=== PATIENT | male | born 1945 | race Two or more races ===

== ENCOUNTER 2016-12-22 10:27 | Inpatient (IN) | payer OTHER ==
[2016-12-22] VITALS (30 sets, daily range): BP systolic 79–161; BP diastolic 49–95
[~2016-12-22] VITALS: Ht 185.4 cm; Wt 84.9 kg
[2016-12-22] MEDS ORDERED: SODIUM CHLORIDE 0.9% 1,000 ML IV ONE (10:33)
[2016-12-22] MEDS ORDERED: PIPERACILLIN/TAZOBACTAM 3.375GM/50ML PREMIX IV ONE (10:45)
[2016-12-22 11:07] LABS: BASOPHILS % 0.2 % (0.0-2.0); EOSINOPHILS % 0.1 % (0.0-5.0); HEMATOCRIT. 50.8 % (42.0-52.0); HEMOGLOBIN. 16.4 g/dL (14.0-18.0); LYMPHOCYTES % 16.8 % (20.0-50.0); MEAN CORPUSCULAR HEMOGLOBIN 29.5 pg (28.0-32.0); MEAN CORPUSCULAR VOLUME 91.7 fL (80.0-94.0); MEAN PLATELET VOLUME 11.7 fl (7.4-10.4); MONOCYTES % 8.5 % (2.0-8.0); NEUTROPHILS % 74.4 % (40.0-76.0); PLATELET 120 x1000/uL (130-400); RED BLOOD CELL COUNT 5.55 mill/uL (4.7-6.1); RED CELL DISTRIBUTION WIDTH 14.9 % (11.6-14.6)
[2016-12-22 11:07] LABS: GLUCOSE URINE NEGATIVE (NEGATIVE); KETONES URINE NEGATIVE (NEGATIVE); LEUKOCYTE ESTERASE URINE 3+ (NEGATIVE); NITRITE URINE POSITIVE (NEGATIVE); OCCULT BLOOD URINE 3+ (NEGATIVE); PH URINE 8.5 (4.5-8.0); PROTEIN URINE 3+ (NEGATIVE); SPECIFIC GRAVITY URINE 1.024 (1.005-1.030)
[2016-12-22 11:08] LABS: CLARITY URINE TURBID (CLEAR); COLOR URINE DARK YELLOW (YELLOW)
[2016-12-22 11:09] LABS: BG BASE EXCESS -12.5 mmol/L (-2.0-2.0); BG CARBOXYHEMOGLOBIN 0.4 % (0.5-1.5); BG DEOXYHEMOGLOBIN 1.5 % (0.0-5.0); BG FRACTION INSPIRED OXYGEN 99.8; BG HCO3 ACT 17.4 mmol/L (22.0-26.0); BG METHEMOGLOBIN 0.6 % (0.0-1.5); BG OXYGEN SATURATION 98.5 % (92.0-98.5); BG OXYHEMOGLOBIN 97.5 % (94.0-97.0); BG PCO2 55.5 mmHg (35.0-45.0); BG PH 7.115 (7.350-7.450); BG SAMPLE SITE RIGHT RADIAL; BG TOTAL HEMOGLOBIN 16.7 g/dL (12.0-18.0); BG VENT MODE MASK - NRB
[2016-12-22 11:13] LABS: CARBON DIOXIDE 19 mEq/L (21-32); CHLORIDE 144 mEq/L (98-107)
[2016-12-22 11:14] LABS: INR 1.2; PROTHROMBIN TIME 12.4 sec (9.4-11.6)
[2016-12-22] MEDS ORDERED: VANCOMYCIN 1 G PREMIX 200 ML IV SCH (11:15)
[2016-12-22] MEDS: PIPERACILLIN/TAZ 3.375G PREMIX 50 ML IV NR ×2 (11:43→13:10)
[2016-12-22] MEDS ORDERED: PROPOFOL 10MG/ML 100ML 100 ML IV ONE (12:45)
[2016-12-22] MEDS ORDERED: SUCCINYLCHOLINE CHLORIDE 200MG/10ML VIAL IV ONE (12:45)
[2016-12-22 15:19] LABS: BG BASE EXCESS -13.8 mmol/L (-2.0-2.0); BG CARBOXYHEMOGLOBIN 0.2 % (0.5-1.5); BG DEOXYHEMOGLOBIN 0.6 % (0.0-5.0); BG FRACTION INSPIRED OXYGEN 100; BG METHEMOGLOBIN 0.6 % (0.0-1.5); BG OXYGEN SATURATION 99.4 % (92.0-98.5); BG OXYHEMOGLOBIN 98.6 % (94.0-97.0); BG PCO2 45.2 mmHg (35.0-45.0); BG PH 7.138 (7.350-7.450); BG PO2 395.5 mmHg (75.0-100.0); BG SAMPLE SITE RIGHT BRACHIAL; BG TIDAL VOLUME(mL) 550 mL; BG TOTAL HEMOGLOBIN 14.6 g/dL (12.0-18.0); BG VENT MODE VENT - A/C; BG VENT RATE 16 set
[2016-12-22] MEDS ORDERED: ALBUTEROL (0.5%) 2.5MG/0.5ML NEB HHN PRN (17:45)
[2016-12-22] MEDS ORDERED: ALBUTEROL (0.083%) 2.5MG/3ML NEB HHN SCH (18:00)
[2016-12-22] MEDS ORDERED: PROPOFOL 10MG/ML 100ML 100 ML IV PRN (18:00)
[2016-12-22] MEDS ORDERED: ALBUTEROL (0.083%) 2.5MG/3ML NEB HHN PRN (18:01)
[2016-12-22] MEDS ORDERED: IPRATROPIUM/ALBUTEROL 0.5-3(2.5)MG/3ML NEB INH PRN (18:30)
[2016-12-22] MEDS ORDERED: ONDANSETRON HCL 4MG/2ML VIAL IV PRN (18:30)
[2016-12-22] MEDS ORDERED: RANI150T7 PO (18:39)
[2016-12-22] MEDS ORDERED: FERR325T6 PO (18:39)
[2016-12-22] MEDS ORDERED: Atorvastatin Calcium PO (18:39)
[2016-12-22] MEDS ORDERED: ASPI-1159 PO (18:39)
[2016-12-22] MEDS ORDERED: LEVE500T19 PO (18:39)
[2016-12-22] MEDS ORDERED: CARV6.2548 PO (18:39)
[2016-12-22] MEDS ORDERED: QUET50TA PO (18:39)
[2016-12-22] MEDS ORDERED: MIRTAZAPINE PO (18:39)
[2016-12-22] MEDS ORDERED: DEXT 5%/0.45% NACL 500ML 500 ML IV NR (18:41)
[2016-12-22] MEDS ORDERED: DEXT 5%/0.45% NACL 500ML 500 ML IV ONE (18:45)
[2016-12-22] MEDS ORDERED: DIGOXIN 500MCG/2ML AMP IV NR (18:52)
[2016-12-22] MEDS: NOREPINEPHRINE 16 MG in DEXT 5% WATER 234 ML IV PRN (19:00)
[2016-12-22] MEDS: AMIODARONE HCL 200 MG TABLET NG SCH (19:00)
[2016-12-22] MEDS ORDERED: FINA5TAB11 PO (19:08)
[2016-12-22] MEDS: DEXTROSE 5% WATER 1,000 ML IV SCH (19:09)
[2016-12-22] MEDS: ENOXAPARIN 30MG/0.3ML SYR SUBCUT SCH (20:29)
[2016-12-22 20:34] LABS: D-DIMER > 35.20 mg/L FEU (<0.50); FIBRINOGEN 279 mg/dL (200-400)
[2016-12-22] MEDS: PANTOPRAZOLE SODIUM 40 MG/VIAL IV SCH (20:59)
[2016-12-22] MEDS: LEVETIRACETAM 500 MG in SODIUM CHLORIDE 0.9% 100 ML IV SCH (20:59)
[2016-12-22] MEDS: ALBUTEROL (0.083%) 2.5MG/3ML NEB HHN SCH (21:00)
[2016-12-22 21:26] LABS: BG BASE EXCESS -14.2 mmol/L (-2.0-2.0); BG CARBOXYHEMOGLOBIN 0.5 % (0.5-1.5); BG DEOXYHEMOGLOBIN 1.1 % (0.0-5.0); BG FRACTION INSPIRED OXYGEN 60; BG HCO3 ACT 11.1 mmol/L (22.0-26.0); BG METHEMOGLOBIN 0.4 % (0.0-1.5); BG OXYGEN SATURATION 98.9 % (92.0-98.5); BG PCO2 25.7 mmHg (35.0-45.0); BG PH 7.253 (7.350-7.450); BG PO2 172.4 mmHg (75.0-100.0); BG SAMPLE SITE RIGHT RADIAL; BG TIDAL VOLUME(mL) 550 mL; BG TOTAL HEMOGLOBIN 14.7 g/dL (12.0-18.0); BG VENT MODE VENT - A/C; BG VENT RATE 22 set
[2016-12-22] MEDS ORDERED: SODIUM BICARBONATE 8.4% 1 MEQ/ML 50ML SYR IV NR (22:00)
[2016-12-22] MEDS: PIPERACILLIN/TAZ 2.25G PREMIX 50 ML IV SCH (22:07)
[2016-12-22] MEDS ORDERED: DIGOXIN 500MCG/2ML AMP IV PRN (23:00)
[2016-12-22 23:07] LABS: CREATINE KINASE MB FRACTION 1.4 ng/mL (0.5-3.6); TROPONIN I 0.03 ng/mL (0.00-0.04)
[2016-12-23] VITALS (84 sets, daily range): BP systolic 77–153; BP diastolic 37–90
[2016-12-23] MEDS: ALBUTEROL (0.083%) 2.5MG/3ML NEB HHN SCH ×6 (00:50→20:08)
[2016-12-23] MEDS ORDERED: ATROPINE SULFATE 1MG/ML VIAL IV PRN (02:00)
[2016-12-23] MEDS: PIPERACILLIN/TAZ 2.25G PREMIX 50 ML IV SCH ×4 (04:16→21:49)
[2016-12-23] MEDS: DEXTROSE 5% WATER 1,000 ML IV SCH ×4 (04:17→19:04)
[2016-12-23 05:43] LABS: BASOPHILS % 0.7 % (0.0-2.0); EOSINOPHILS % 2.4 % (0.0-5.0); HEMATOCRIT. 42.5 % (42.0-52.0); HEMOGLOBIN. 13.6 g/dL (14.0-18.0); LYMPHOCYTES % 12.6 % (20.0-50.0); MEAN CORPUSCULAR HEMOGLOBIN 29.1 pg (28.0-32.0); MEAN CORPUSCULAR VOLUME 91.1 fL (80.0-94.0); MEAN PLATELET VOLUME 12.3 fl (7.4-10.4); MONOCYTES % 6.4 % (2.0-8.0); NEUTROPHILS % 77.9 % (40.0-76.0); PLATELET 93 x1000/uL (130-400); RED BLOOD CELL COUNT 4.66 mill/uL (4.7-6.1); RED CELL DISTRIBUTION WIDTH 14.2 % (11.6-14.6)
[2016-12-23 06:14] LABS: CREATINE KINASE 345 IU/L (39-308); CREATINE KINASE MB FRACTION 1.7 ng/mL (0.5-3.6); HDL CHOLESTEROL 22 mg/dL (40-59); LDL CHOLESTEROL 63 mg/dL (5-100); TROPONIN I < 0.02 ng/mL (0.00-0.04)
[2016-12-23] MEDS ORDERED: MIRT15TA6 PO (08:10)
[2016-12-23] MEDS ORDERED: SODIUM BICARBONATE 4% (2.4MEQ) 5ML VIAL IV ONE (08:22)
[2016-12-23] MEDS ORDERED: LIDOCAINE HCL 1% 20ML VIAL (Pyxis) INJ ONE (08:22)
[2016-12-23 08:46] LABS: BG BASE EXCESS -9.9 mmol/L (-2.0-2.0); BG CARBOXYHEMOGLOBIN 0.4 % (0.5-1.5); BG DEOXYHEMOGLOBIN 2.6 % (0.0-5.0); BG FRACTION INSPIRED OXYGEN 60; BG HCO3 ACT 14.3 mmol/L (22.0-26.0); BG METHEMOGLOBIN 0.2 % (0.0-1.5); BG OXYGEN SATURATION 97.4 % (92.0-98.5); BG OXYHEMOGLOBIN 96.8 % (94.0-97.0); BG PCO2 27.5 mmHg (35.0-45.0); BG PH 7.335 (7.350-7.450); BG PO2 103.1 mmHg (75.0-100.0); BG SAMPLE SITE RIGHT RADIAL; BG TIDAL VOLUME(mL) 550 mL; BG TOTAL HEMOGLOBIN 13.4 g/dL (12.0-18.0); BG VENT MODE VENT - A/C; BG VENT RATE 22 set
[2016-12-23] MEDS: PANTOPRAZOLE SODIUM 40 MG/VIAL IV SCH (10:39)
[2016-12-23] MEDS: AMIODARONE HCL 200 MG TABLET NG SCH ×3 (10:39→18:24)
[2016-12-23] MEDS: LEVETIRACETAM 500 MG in SODIUM CHLORIDE 0.9% 100 ML IV SCH ×2 (10:39→21:11)
[2016-12-23 12:31] LABS: CREATINE KINASE 420 IU/L (39-308)
[2016-12-23] MEDS ORDERED: DEXTROSE 50% WATER 50ML SYRINGE IV PRN ×2 (13:00)
[2016-12-23] MEDS ORDERED: INSULIN LISPRO 100 UNITS/ML SUBCUT SCH (13:20)
[2016-12-23] MEDS: BLOOD SUGAR DIAGNOSTIC STRIP TEST SCH ×3 (13:28→23:54)
[2016-12-23] MEDS: INSULIN LISPRO 100 UNITS/ML SUBCUT SCH ×3 (13:58→23:54)
[2016-12-23] MEDS: MORPHINE SULFATE 4 MG/ML CPJ (NOT FOR IM USE) IV PRN (15:19)
[2016-12-23] MEDS: ACETYLCYSTEINE 100MG/ML 10% VIAL 4ML INH SCH ×2 (15:36→20:09)
[2016-12-23] MEDS ORDERED: BLOOD SUGAR DIAGNOSTIC STRIP TEST SCH (17:50)
[2016-12-24] VITALS (75 sets, daily range): BP systolic 52–188; BP diastolic 20–92
[2016-12-24] MEDS: ACETYLCYSTEINE 100MG/ML 10% VIAL 4ML INH SCH ×6 (00:03→23:30)
[2016-12-24] MEDS: ALBUTEROL (0.083%) 2.5MG/3ML NEB HHN SCH ×6 (00:03→23:30)
[2016-12-24] MEDS: MORPHINE SULFATE 4 MG/ML CPJ (NOT FOR IM USE) IV PRN ×2 (02:30→06:31)
[2016-12-24] MEDS: PIPERACILLIN/TAZ 2.25G PREMIX 50 ML IV SCH ×4 (03:06→22:51)
[2016-12-24] MEDS: BLOOD SUGAR DIAGNOSTIC STRIP TEST SCH ×4 (05:38→23:54)
[2016-12-24] MEDS: INSULIN LISPRO 100 UNITS/ML SUBCUT SCH ×4 (05:38→23:54)
[2016-12-24] MEDS: PANTOPRAZOLE SODIUM 40 MG/VIAL IV SCH (08:19)
[2016-12-24] MEDS: LEVETIRACETAM 500 MG in SODIUM CHLORIDE 0.9% 100 ML IV SCH ×2 (08:19→20:14)
[2016-12-24] MEDS: SODIUM CHLORIDE 0.45% 1,000 ML IV SCH (08:20)
[2016-12-24] MEDS: AMIODARONE HCL 200 MG TABLET NG SCH ×3 (08:20→17:19)
[2016-12-24 10:02] LABS: BG BASE EXCESS -9.3 mmol/L (-2.0-2.0); BG CARBOXYHEMOGLOBIN 0.2 % (0.5-1.5); BG DEOXYHEMOGLOBIN 5.5 % (0.0-5.0); BG HCO3 ACT 14.4 mmol/L (22.0-26.0); BG METHEMOGLOBIN 0.1 % (0.0-1.5); BG OXYGEN SATURATION 94.5 % (92.0-98.5); BG OXYHEMOGLOBIN 94.2 % (94.0-97.0); BG PCO2 26.1 mmHg (35.0-45.0); BG PH 7.361 (7.350-7.450); BG SAMPLE SITE RIGHT BRACHIAL; BG TIDAL VOLUME(mL) 550 mL; BG TOTAL HEMOGLOBIN 13.5 g/dL (12.0-18.0); BG VENT MODE VENT - A/C; BG VENT RATE 22 set
[2016-12-24] MEDS: NOREPINEPHRINE 16 MG in DEXT 5% WATER 234 ML IV PRN (11:25)
[2016-12-24] MEDS ORDERED: HEPARIN SODIUM 1,000 UNIT/1ML VIAL IV NR (12:00)
[2016-12-24 12:47] LABS: HEPATITIS B SURFACE ANTIGEN NEGATIVE
[2016-12-24] MEDS: METOCLOPRAMIDE HCL 10MG/2ML VIAL IV SCH ×2 (13:01→20:15)
[2016-12-24 13:11] LABS: HEPATITIS B CORE AB IGM NEGATIVE
[2016-12-24 13:13] LABS: HEPATITIS A AB IGM NEGATIVE (NEGATIVE)
[2016-12-24 17:31] LABS: HEMATOCRIT. 39.2 % (42.0-52.0); MEAN CORPUSCULAR HEMOGLOBIN 29.3 pg (28.0-32.0); MEAN CORPUSCULAR VOLUME 88.2 fL (80.0-94.0); PLATELET 66 x1000/uL (130-400); RED BLOOD CELL COUNT 4.44 mill/uL (4.7-6.1); RED CELL DISTRIBUTION WIDTH 14.2 % (11.6-14.6)
[2016-12-24 19:12] LABS: ANTI-NUCLEAR ANTIBODIES DIRECT Negative (Negative)
[2016-12-24 20:39] LABS: NUCLEATED RED BLOOD CELLS 2 /100 WBC; PLATELET ESTIMATE MARKEDLY DECREASED
[2016-12-25] VITALS (94 sets, daily range): BP systolic 59–164; BP diastolic 33–129
[2016-12-25] MEDS: MORPHINE SULFATE 4 MG/ML CPJ (NOT FOR IM USE) IV PRN (02:45)
[2016-12-25] MEDS ORDERED: CEFTRIAXONE 2 G PREMIX 50 ML IV SCH (03:00)
[2016-12-25] MEDS: ALBUTEROL (0.083%) 2.5MG/3ML NEB HHN SCH ×5 (03:27→20:18)
[2016-12-25] MEDS: ACETYLCYSTEINE 100MG/ML 10% VIAL 4ML INH SCH ×5 (03:27→20:18)
[2016-12-25] MEDS: METOCLOPRAMIDE HCL 10MG/2ML VIAL IV SCH ×3 (03:30→20:08)
[2016-12-25] MEDS: CEFTRIAXONE 2 G in DEXTROSE 5% WATER 50 ML IV SCH (03:30)
[2016-12-25] MEDS: SODIUM CHLORIDE 0.45% 1,000 ML IV SCH (03:38)
[2016-12-25 05:51] LABS: HEMATOCRIT. 37.6 % (42.0-52.0); HEMOGLOBIN. 12.5 g/dL (14.0-18.0); MEAN CORPUSCULAR HEMOGLOBIN 29.4 pg (28.0-32.0); MEAN CORPUSCULAR VOLUME 88.2 fL (80.0-94.0); MEAN PLATELET VOLUME 12.3 fl (7.4-10.4); PLATELET 60 x1000/uL (130-400); RED BLOOD CELL COUNT 4.26 mill/uL (4.7-6.1); RED CELL DISTRIBUTION WIDTH 14.1 % (11.6-14.6)
[2016-12-25] MEDS: INSULIN LISPRO 100 UNITS/ML SUBCUT SCH ×3 (06:00→17:48)
[2016-12-25] MEDS: BLOOD SUGAR DIAGNOSTIC STRIP TEST SCH ×3 (06:07→17:48)
[2016-12-25 07:13] LABS: PHOSPHORUS 5.4 mg/dL (2.5-4.9)
[2016-12-25 08:10] LABS: BG BASE EXCESS -8.2 mmol/L (-2.0-2.0); BG CARBOXYHEMOGLOBIN 0.1 % (0.5-1.5); BG DEOXYHEMOGLOBIN 4.4 % (0.0-5.0); BG FRACTION INSPIRED OXYGEN 45; BG HCO3 ACT 16.2 mmol/L (22.0-26.0); BG METHEMOGLOBIN 0.2 % (0.0-1.5); BG OXYGEN SATURATION 95.6 % (92.0-98.5); BG OXYHEMOGLOBIN 95.3 % (94.0-97.0); BG PCO2 30.2 mmHg (35.0-45.0); BG PH 7.347 (7.350-7.450); BG PO2 85.7 mmHg (75.0-100.0); BG SAMPLE SITE RIGHT RADIAL; BG TIDAL VOLUME(mL) 550 mL; BG VENT MODE VENT - A/C; BG VENT RATE 20 set
[2016-12-25] MEDS ORDERED: POTASSIUM CHLORIDE 20MEQ TABLET SR PO NR (08:30)
[2016-12-25] MEDS: PANTOPRAZOLE SODIUM 40 MG/VIAL IV SCH (08:55)
[2016-12-25] MEDS: AMIODARONE HCL 200 MG TABLET NG SCH ×2 (08:55→17:53)
[2016-12-25] MEDS: LEVETIRACETAM 500 MG in SODIUM CHLORIDE 0.9% 100 ML IV SCH ×2 (08:56→21:53)
[2016-12-25] MEDS: CITRIC ACID/SODIUM CITRATE SOLN 30ML UDC PO SCH ×3 (09:00→17:53)
[2016-12-25 09:08] LABS: COMPLEMENT C3 101 mg/dL (82-167)
[2016-12-25 13:05] LABS: NUCLEATED RED BLOOD CELLS 1 /100 WBC
[2016-12-25 13:06] LABS: PLATELET ESTIMATE DECREASED
[2016-12-25 23:48] LABS: FOLIC ACID (FOLATE) SERUM 17.6 ng/mL (>5.38)
[2016-12-26] VITALS (92 sets, daily range): BP systolic 97–152; BP diastolic 45–84
[2016-12-26] MEDS: ALBUTEROL (0.083%) 2.5MG/3ML NEB HHN SCH ×6 (00:34→20:14)
[2016-12-26] MEDS: ACETYLCYSTEINE 100MG/ML 10% VIAL 4ML INH SCH ×6 (00:34→20:15)
[2016-12-26] MEDS: CEFTRIAXONE 2 G in DEXTROSE 5% WATER 50 ML IV SCH (03:21)
[2016-12-26] MEDS: METOCLOPRAMIDE HCL 10MG/2ML VIAL IV SCH ×3 (04:46→20:39)
[2016-12-26] MEDS: INSULIN LISPRO 100 UNITS/ML SUBCUT SCH ×5 (06:00→23:45)
[2016-12-26] MEDS: BLOOD SUGAR DIAGNOSTIC STRIP TEST SCH ×5 (06:00→23:45)
[2016-12-26 06:09] LABS: HEMATOCRIT. 33.5 % (42.0-52.0); HEMOGLOBIN. 11.3 g/dL (14.0-18.0); MEAN CORPUSCULAR HEMOGLOBIN 29.4 pg (28.0-32.0); MEAN CORPUSCULAR VOLUME 87.4 fL (80.0-94.0); MEAN PLATELET VOLUME 12.7 fl (7.4-10.4); PLATELET 65 x1000/uL (130-400); RED BLOOD CELL COUNT 3.84 mill/uL (4.7-6.1); RED CELL DISTRIBUTION WIDTH 14.2 % (11.6-14.6)
[2016-12-26] MEDS: NOREPINEPHRINE 16 MG in DEXT 5% WATER 234 ML IV PRN (08:12)
[2016-12-26 08:20] LABS: BG BASE EXCESS -7.7 mmol/L (-2.0-2.0); BG CARBOXYHEMOGLOBIN 0.3 % (0.5-1.5); BG DEOXYHEMOGLOBIN 2.9 % (0.0-5.0); BG FRACTION INSPIRED OXYGEN 40; BG HCO3 ACT 16.7 mmol/L (22.0-26.0); BG METHEMOGLOBIN 0.1 % (0.0-1.5); BG OXYGEN SATURATION 97.1 % (92.0-98.5); BG OXYHEMOGLOBIN 96.7 % (94.0-97.0); BG PCO2 30.4 mmHg (35.0-45.0); BG PH 7.357 (7.350-7.450); BG PO2 105.4 mmHg (75.0-100.0); BG SAMPLE SITE RIGHT RADIAL; BG TIDAL VOLUME(mL) 500 mL; BG TOTAL HEMOGLOBIN 11.3 g/dL (12.0-18.0); BG VENT MODE VENT - A/C; BG VENT RATE 20 set
[2016-12-26] MEDS ORDERED: HEPARIN SODIUM 1,000 UNIT/1ML VIAL IV NR (09:30)
[2016-12-26 09:33] LABS: PHOSPHORUS 4.7 mg/dL (2.5-4.9)
[2016-12-26] MEDS ORDERED: DILTIAZEM HCL 5MG/ML 5ML VIAL IV PRN (10:15)
[2016-12-26] MEDS: LEVETIRACETAM 500 MG in SODIUM CHLORIDE 0.9% 100 ML IV SCH ×2 (10:24→20:39)
[2016-12-26] MEDS: AMIODARONE HCL 200 MG TABLET NG SCH ×2 (10:24→17:17)
[2016-12-26] MEDS: PANTOPRAZOLE SODIUM 40 MG/VIAL IV SCH (10:24)
[2016-12-26 16:29] LABS: PLATELET ESTIMATE DECREASED
[2016-12-26] MEDS: MORPHINE SULFATE 4 MG/ML CPJ (NOT FOR IM USE) IV PRN (22:40)
[2016-12-27] VITALS (59 sets, daily range): BP systolic 92–162; BP diastolic 46–80
[2016-12-27] MEDS: ALBUTEROL (0.083%) 2.5MG/3ML NEB HHN SCH ×6 (00:09→23:51)
[2016-12-27] MEDS: ACETYLCYSTEINE 100MG/ML 10% VIAL 4ML INH SCH ×6 (00:12→23:51)
[2016-12-27] MEDS: CEFTRIAXONE 2 G in DEXTROSE 5% WATER 50 ML IV SCH (02:00)
[2016-12-27] MEDS: METOCLOPRAMIDE HCL 10MG/2ML VIAL IV SCH ×3 (03:45→21:06)
[2016-12-27] MEDS: INSULIN LISPRO 100 UNITS/ML SUBCUT SCH ×3 (06:00→17:18)
[2016-12-27] MEDS: BLOOD SUGAR DIAGNOSTIC STRIP TEST SCH ×3 (06:12→17:17)
[2016-12-27 07:33] LABS: BASOPHILS % 0.4 % (0.0-2.0); EOSINOPHILS % 3.1 % (0.0-5.0); HEMATOCRIT. 36.2 % (42.0-52.0); HEMOGLOBIN. 12.2 g/dL (14.0-18.0); LYMPHOCYTES % 14.9 % (20.0-50.0); MEAN CORPUSCULAR HEMOGLOBIN 29.4 pg (28.0-32.0); MEAN CORPUSCULAR VOLUME 87.1 fL (80.0-94.0); MEAN PLATELET VOLUME 12.6 fl (7.4-10.4); MONOCYTES % 6.2 % (2.0-8.0); NEUTROPHILS % 75.4 % (40.0-76.0); PLATELET 77 x1000/uL (130-400); RED BLOOD CELL COUNT 4.15 mill/uL (4.7-6.1); RED CELL DISTRIBUTION WIDTH 13.9 % (11.6-14.6)
[2016-12-27 07:34] LABS: BG BASE EXCESS -2.2 mmol/L (-2.0-2.0); BG CARBOXYHEMOGLOBIN 0.1 % (0.5-1.5); BG DEOXYHEMOGLOBIN 6.4 % (0.0-5.0); BG HCO3 ACT 20.8 mmol/L (22.0-26.0); BG METHEMOGLOBIN 0.3 % (0.0-1.5); BG OXYGEN SATURATION 93.6 % (92.0-98.5); BG OXYHEMOGLOBIN 93.2 % (94.0-97.0); BG PCO2 30.9 mmHg (35.0-45.0); BG PH 7.447 (7.350-7.450); BG PO2 69.9 mmHg (75.0-100.0); BG SAMPLE SITE RIGHT BRACHIAL; BG TIDAL VOLUME(mL) 550 mL; BG TOTAL HEMOGLOBIN 13.1 g/dL (12.0-18.0); BG VENT MODE VENT - A/C; BG VENT RATE 14 set
[2016-12-27] MEDS ORDERED: POTASSIUM CHLORIDE 20MEQ TABLET SR PO NR (08:00)
[2016-12-27] MEDS: PANTOPRAZOLE SODIUM 40 MG/VIAL IV SCH (09:00)
[2016-12-27] MEDS: LEVETIRACETAM 500 MG in SODIUM CHLORIDE 0.9% 100 ML IV SCH ×2 (09:00→21:06)
[2016-12-27] MEDS: AMIODARONE HCL 200 MG TABLET NG SCH ×2 (09:01→16:51)
[2016-12-27 14:19] LABS: BG BASE EXCESS -3.2 mmol/L (-2.0-2.0); BG CARBOXYHEMOGLOBIN 0.5 % (0.5-1.5); BG CPAP (cmH2O) 0 cm(H2O); BG DEOXYHEMOGLOBIN 4.3 % (0.0-5.0); BG HCO3 ACT 20.5 mmol/L (22.0-26.0); BG METHEMOGLOBIN 0.1 % (0.0-1.5); BG OXYGEN SATURATION 95.7 % (92.0-98.5); BG OXYHEMOGLOBIN 95.1 % (94.0-97.0); BG PCO2 32.8 mmHg (35.0-45.0); BG PH 7.414 (7.350-7.450); BG PO2 84.2 mmHg (75.0-100.0); BG SAMPLE SITE RIGHT BRACHIAL; BG TOTAL HEMOGLOBIN 13.1 g/dL (12.0-18.0); BG VENT MODE VENT - CPAP
[2016-12-28] VITALS (37 sets, daily range): BP systolic 122–164; BP diastolic 54–92
[2016-12-28] MEDS: CEFTRIAXONE 2 G in DEXTROSE 5% WATER 50 ML IV SCH (02:57)
[2016-12-28] MEDS: METOCLOPRAMIDE HCL 10MG/2ML VIAL IV SCH ×3 (02:57→20:39)
[2016-12-28] MEDS: ALBUTEROL (0.083%) 2.5MG/3ML NEB HHN SCH ×6 (03:17→23:59)
[2016-12-28] MEDS: BLOOD SUGAR DIAGNOSTIC STRIP TEST SCH ×4 (06:00→17:39)
[2016-12-28] MEDS: INSULIN LISPRO 100 UNITS/ML SUBCUT SCH ×4 (06:00→17:39)
[2016-12-28 06:21] LABS: BASOPHILS % 0.4 % (0.0-2.0); EOSINOPHILS % 2.5 % (0.0-5.0); HEMOGLOBIN. 11.3 g/dL (14.0-18.0); MEAN CORPUSCULAR HEMOGLOBIN 29.8 pg (28.0-32.0); MEAN CORPUSCULAR VOLUME 86.9 fL (80.0-94.0); MEAN PLATELET VOLUME 11.3 fl (7.4-10.4); MONOCYTES % 5.8 % (2.0-8.0); NEUTROPHILS % 64.3 % (40.0-76.0); PLATELET 95 x1000/uL (130-400)
[2016-12-28 06:48] LABS: PHOSPHORUS 4.4 mg/dL (2.5-4.9)
[2016-12-28] MEDS: ACETYLCYSTEINE 100MG/ML 10% VIAL 4ML INH SCH ×5 (08:25→23:59)
[2016-12-28] MEDS: PANTOPRAZOLE SODIUM 40 MG/VIAL IV SCH (08:53)
[2016-12-28] MEDS: AMIODARONE HCL 200 MG TABLET NG SCH ×2 (08:53→17:55)
[2016-12-28] MEDS: LEVETIRACETAM 500 MG in SODIUM CHLORIDE 0.9% 100 ML IV SCH ×2 (09:03→20:39)
[2016-12-28] MEDS: DILTIAZEM HCL 30MG TABLET PO SCH ×2 (15:42→22:15)
[2016-12-28] MEDS ORDERED: POTASSIUM CHLORIDE INJ 40 MEQ in DEXT 5% WATER 250 ML IV NR (16:00)
[2016-12-29] VITALS (43 sets, daily range): BP systolic 113–198; BP diastolic 47–103
[2016-12-29] MEDS: BLOOD SUGAR DIAGNOSTIC STRIP TEST SCH ×4 (00:40→17:58)
[2016-12-29] MEDS: METOCLOPRAMIDE HCL 10MG/2ML VIAL IV SCH ×3 (02:47→19:39)
[2016-12-29] MEDS: CEFTRIAXONE 2 G in DEXTROSE 5% WATER 50 ML IV SCH (02:47)
[2016-12-29] MEDS: ACETYLCYSTEINE 100MG/ML 10% VIAL 4ML INH SCH ×5 (04:18→20:03)
[2016-12-29] MEDS: ALBUTEROL (0.083%) 2.5MG/3ML NEB HHN SCH ×5 (04:19→20:02)
[2016-12-29 04:53] LABS: BASOPHILS % 0.4 % (0.0-2.0); EOSINOPHILS % 2.8 % (0.0-5.0); HEMATOCRIT. 32.5 % (42.0-52.0); LYMPHOCYTES % 31.9 % (20.0-50.0); MEAN CORPUSCULAR HEMOGLOBIN 29.3 pg (28.0-32.0); MEAN PLATELET VOLUME 10.5 fl (7.4-10.4); MONOCYTES % 7.1 % (2.0-8.0); NEUTROPHILS % 57.8 % (40.0-76.0); PLATELET 117 x1000/uL (130-400); RED BLOOD CELL COUNT 3.74 mill/uL (4.7-6.1); RED CELL DISTRIBUTION WIDTH 14.3 % (11.6-14.6)
[2016-12-29] MEDS: DILTIAZEM HCL 30MG TABLET PO SCH ×3 (05:24→22:21)
[2016-12-29] MEDS: INSULIN LISPRO 100 UNITS/ML SUBCUT SCH ×4 (05:44→17:58)
[2016-12-29] MEDS: LEVETIRACETAM 500 MG in SODIUM CHLORIDE 0.9% 100 ML IV SCH ×2 (08:32→21:28)
[2016-12-29] MEDS: AMIODARONE HCL 200 MG TABLET NG SCH ×2 (08:32→17:58)
[2016-12-29] MEDS: PANTOPRAZOLE SODIUM 40 MG/VIAL IV SCH (08:32)
[2016-12-29 10:59] LABS: BG BASE EXCESS -5.2 mmol/L (-2.0-2.0); BG CARBOXYHEMOGLOBIN 0.1 % (0.5-1.5); BG DEOXYHEMOGLOBIN 3.2 % (0.0-5.0); BG FRACTION INSPIRED OXYGEN 40; BG HCO3 ACT 20.3 mmol/L (22.0-26.0); BG METHEMOGLOBIN 0.1 % (0.0-1.5); BG OXYGEN SATURATION 96.8 % (92.0-98.5); BG OXYHEMOGLOBIN 96.6 % (94.0-97.0); BG PCO2 39.2 mmHg (35.0-45.0); BG PH 7.332 (7.350-7.450); BG PO2 94.1 mmHg (75.0-100.0); BG SAMPLE SITE RIGHT RADIAL; BG TOTAL HEMOGLOBIN 11.6 g/dL (12.0-18.0); BG VENT MODE NASAL CANNULA
[2016-12-30] VITALS (28 sets, daily range): BP systolic 124–165; BP diastolic 47–79
[2016-12-30] MEDS: ACETYLCYSTEINE 100MG/ML 10% VIAL 4ML INH SCH ×6 (00:20→22:04)
[2016-12-30] MEDS: ALBUTEROL (0.083%) 2.5MG/3ML NEB HHN SCH ×6 (00:20→22:04)
[2016-12-30] MEDS: CEFTRIAXONE 2 G in DEXTROSE 5% WATER 50 ML IV SCH (02:52)
[2016-12-30] MEDS: METOCLOPRAMIDE HCL 10MG/2ML VIAL IV SCH ×3 (03:41→21:05)
[2016-12-30] MEDS: BLOOD SUGAR DIAGNOSTIC STRIP TEST SCH ×5 (05:46→21:06)
[2016-12-30] MEDS: INSULIN LISPRO 100 UNITS/ML SUBCUT SCH ×5 (05:46→21:06)
[2016-12-30 05:47] LABS: BASOPHILS % 0.4 % (0.0-2.0); EOSINOPHILS % 2.4 % (0.0-5.0); HEMATOCRIT. 33.9 % (42.0-52.0); HEMOGLOBIN. 11.3 g/dL (14.0-18.0); LYMPHOCYTES % 32.8 % (20.0-50.0); MEAN CORPUSCULAR HEMOGLOBIN 29.3 pg (28.0-32.0); MEAN PLATELET VOLUME 10.1 fl (7.4-10.4); MONOCYTES % 6.1 % (2.0-8.0); NEUTROPHILS % 58.3 % (40.0-76.0); PLATELET 138 x1000/uL (130-400); RED BLOOD CELL COUNT 3.85 mill/uL (4.7-6.1); RED CELL DISTRIBUTION WIDTH 14.5 % (11.6-14.6)
[2016-12-30] MEDS: DILTIAZEM HCL 30MG TABLET PO SCH ×3 (05:47→21:06)
[2016-12-30] MEDS: PANTOPRAZOLE SODIUM 40 MG/VIAL IV SCH (08:19)
[2016-12-30] MEDS: AMIODARONE HCL 200 MG TABLET NG SCH ×2 (08:19→17:09)
[2016-12-30] MEDS: LEVETIRACETAM 500 MG in SODIUM CHLORIDE 0.9% 100 ML IV SCH ×2 (08:19→22:13)
[2016-12-30] MEDS ORDERED: VANCOMYCIN 2,000 MG in DEXT 5% WATER 500 ML IV NR (13:00)
[2016-12-30] MEDS: ENOXAPARIN 30MG/0.3ML SYR SUBCUT SCH (21:05)
[2016-12-31] VITALS (11 sets, daily range): BP systolic 128–166; BP diastolic 57–75
[2016-12-31] MEDS: ALBUTEROL (0.083%) 2.5MG/3ML NEB HHN SCH ×6 (01:09→21:17)
[2016-12-31] MEDS: CEFTRIAXONE 2 G in DEXTROSE 5% WATER 50 ML IV SCH (03:29)
[2016-12-31] MEDS: ACETYLCYSTEINE 100MG/ML 10% VIAL 4ML INH SCH ×4 (04:52→16:03)
[2016-12-31] MEDS: METOCLOPRAMIDE HCL 10MG/2ML VIAL IV SCH ×3 (05:07→20:07)
[2016-12-31] MEDS: DILTIAZEM HCL 30MG TABLET PO SCH ×3 (05:41→21:52)
[2016-12-31] MEDS: INSULIN LISPRO 100 UNITS/ML SUBCUT SCH ×3 (06:00→18:00)
[2016-12-31] MEDS: BLOOD SUGAR DIAGNOSTIC STRIP TEST SCH ×3 (06:07→18:00)
[2016-12-31 07:56] LABS: BASOPHILS % 0.5 % (0.0-2.0); EOSINOPHILS % 3.3 % (0.0-5.0); HEMATOCRIT. 32.1 % (42.0-52.0); HEMOGLOBIN. 10.7 g/dL (14.0-18.0); LYMPHOCYTES % 21.1 % (20.0-50.0); MEAN CORPUSCULAR HEMOGLOBIN 29.2 pg (28.0-32.0); MEAN CORPUSCULAR VOLUME 87.7 fL (80.0-94.0); MEAN PLATELET VOLUME 10.1 fl (7.4-10.4); MONOCYTES % 4.7 % (2.0-8.0); NEUTROPHILS % 70.4 % (40.0-76.0); PLATELET 180 x1000/uL (130-400); RED BLOOD CELL COUNT 3.66 mill/uL (4.7-6.1); RED CELL DISTRIBUTION WIDTH 14.4 % (11.6-14.6)
[2016-12-31] MEDS: LEVETIRACETAM 500 MG in SODIUM CHLORIDE 0.9% 100 ML IV SCH ×2 (08:42→21:53)
[2016-12-31] MEDS: PANTOPRAZOLE SODIUM 40 MG/VIAL IV SCH (08:42)
[2016-12-31] MEDS: AMIODARONE HCL 200 MG TABLET NG SCH ×2 (08:42→19:29)
[2016-12-31] MEDS: ENOXAPARIN 30MG/0.3ML SYR SUBCUT SCH (21:53)
[2017-01-01] VITALS (27 sets, daily range): BP systolic 107–157; BP diastolic 54–98
[2017-01-01] MEDS: BLOOD SUGAR DIAGNOSTIC STRIP TEST SCH ×4 (00:20→18:11)
[2017-01-01] MEDS: ALBUTEROL (0.083%) 2.5MG/3ML NEB HHN SCH ×4 (01:05→15:47)
[2017-01-01] MEDS: CEFTRIAXONE 2 G in DEXTROSE 5% WATER 50 ML IV SCH (03:02)
[2017-01-01] MEDS: METOCLOPRAMIDE HCL 10MG/2ML VIAL IV SCH ×2 (03:02→13:06)
[2017-01-01] MEDS: DILTIAZEM HCL 30MG TABLET PO SCH (05:34)
[2017-01-01] MEDS: INSULIN LISPRO 100 UNITS/ML SUBCUT SCH ×4 (05:36→18:00)
[2017-01-01 07:31] LABS: BASOPHILS % 0.5 % (0.0-2.0); EOSINOPHILS % 2.6 % (0.0-5.0); HEMATOCRIT. 35.3 % (42.0-52.0); HEMOGLOBIN. 12.1 g/dL (14.0-18.0); LYMPHOCYTES % 23.1 % (20.0-50.0); MEAN CORPUSCULAR HEMOGLOBIN 29.4 pg (28.0-32.0); MEAN CORPUSCULAR VOLUME 85.6 fL (80.0-94.0); MEAN PLATELET VOLUME 9.4 fl (7.4-10.4); MONOCYTES % 6.8 % (2.0-8.0); PLATELET 192 x1000/uL (130-400); RED BLOOD CELL COUNT 4.12 mill/uL (4.7-6.1); RED CELL DISTRIBUTION WIDTH 14.5 % (11.6-14.6)
[2017-01-01] MEDS ORDERED: LIDOCAINE HCL 1% 20ML VIAL (Pyxis) INJ ONE (08:17)
[2017-01-01] MEDS ORDERED: HEPARIN 1000 UNITS/ML 10ML ONE (08:17)
[2017-01-01] MEDS ORDERED: SODIUM BICARBONATE 4% (2.4MEQ) 5ML VIAL IV ONE (08:17)
[2017-01-01] MEDS ORDERED: FENTANYL CITRATE/PF 50MCG/ML 2ML VIAL ONE (09:17)
[2017-01-01] MEDS ORDERED: FENTANYL CITRATE/PF 50MCG/ML 2ML VIAL IV ONE (09:30)
[2017-01-01] MEDS: AMIODARONE HCL 200 MG TABLET NG SCH (10:02)
[2017-01-01] MEDS: LEVETIRACETAM 500 MG in SODIUM CHLORIDE 0.9% 100 ML IV SCH (10:03)
[2017-01-01] MEDS: PANTOPRAZOLE SODIUM 40 MG/VIAL IV SCH (10:03)
[2017-01-01] MEDS ORDERED: DILTIAZEM HCL 120MG CAPSULE CD 24HR PO SCH (10:45)
[2017-01-01] MEDS ORDERED: METOCLOPRAMIDE HCL 5MG TABLET NG PRN (18:30)
[2017-01-01] MEDS ORDERED: LEVETIRACETAM 500MG/5ML CUP NG SCH (21:00)
[2017-01-02] MEDS ORDERED: AMIODARONE HCL 200 MG TABLET NG SCH (09:00)
== END 2017-01-01 20:34 | DRG 870 ==
LOC: ER 10:43 → CVICU 12:58 → EDBEDREQSVC 12:59 → EDBEDREQTM 12:59 → EDBEDREQ 12:59 → ENRESERV 14:41 → ER 16:51 → CVICU 12-27 21:34 → 3WST 12-30 16:55
PROVIDERS: ADMIT Internal Medicine; ATTEND Internal Medicine
PROC: 5A1955Z Respiratory Ventilation, Greater than 96 Consecutive Hours (ICD-10-PCS; 2016-12-22)
PROC: 0BH17EZ Insertion of Endotracheal Airway into Trachea, Via Natural or Artificial Opening (ICD-10-PCS; 2016-12-22)
PROC: 0T7D7ZZ Dilation of Urethra, Via Natural or Artificial Opening (ICD-10-PCS; principal; 2016-12-23)
PROC: 0TJ Urinary System, Inspection (ICD-10-PCS; 2016-12-23)
PROC: 05HN33Z Insertion of Infusion Device into Left Internal Jugular Vein, Percutaneous Approach (ICD-10-PCS; 2016-12-23)
PROC: B544ZZA Ultrasonography of Left Jugular Veins, Guidance (ICD-10-PCS; 2016-12-23)
PROC: 0YH933Z Insertion of Infusion Device into Right Lower Extremity, Percutaneous Approach (ICD-10-PCS; 2016-12-24)
PROC: B54BZZA Ultrasonography of Right Lower Extremity Veins, Guidance (ICD-10-PCS; 2016-12-24)
PROC: B2141ZZ Fluoroscopy of Right Heart using Low Osmolar Contrast (ICD-10-PCS; 2017-01-01)
PROC: 02H633Z Insertion of Infusion Device into Right Atrium, Percutaneous Approach (ICD-10-PCS; 2017-01-01)
PROC: B244YZZ Ultrasonography of Right Heart using Other Contrast (ICD-10-PCS; 2017-01-01)
DX: A41.59 Other Gram-negative sepsis (principal); N17.0 Acute kidney failure with tubular necrosis; G92 Toxic encephalopathy; J15.0 Pneumonia due to Klebsiella pneumoniae; J15.212 Pneumonia due to Methicillin resistant Staphylococcus aureus; J96.02 Acute respiratory failure with hypercapnia; J96.01 Acute respiratory failure with hypoxia; J44.0 Chronic obstructive pulmonary disease with (acute) lower respiratory infection; E87.0 Hyperosmolality and hypernatremia; D68.4 Acquired coagulation factor deficiency; R13.10 Dysphagia, unspecified; N18.6 End stage renal disease; I12.0 Hypertensive chronic kidney disease with stage 5 chronic kidney disease or end stage renal disease; E44.0 Moderate protein-calorie malnutrition; N39.0 Urinary tract infection, site not specified; I47.1 Supraventricular tachycardia; I48.92 Unspecified atrial flutter; J98.11 Atelectasis; M62.82 Rhabdomyolysis; I69.351 Hemiplegia and hemiparesis following cerebral infarction affecting right dominant side; D69.6 Thrombocytopenia, unspecified; E86.0 Dehydration; B96.89 Other specified bacterial agents as the cause of diseases classified elsewhere; B96.4 Proteus (mirabilis) (morganii) as the cause of diseases classified elsewhere; D63.8 Anemia in other chronic diseases classified elsewhere; F03.90 Unspecified dementia, unspecified severity, without behavioral disturbance, psychotic disturbance, mood disturbance, and anxiety; G40.909 Epilepsy, unspecified, not intractable, without status epilepticus; G93.89 Other specified disorders of brain; I48.0 Paroxysmal atrial fibrillation; I73.9 Peripheral vascular disease, unspecified; K70.30 Alcoholic cirrhosis of liver without ascites; F10.20 Alcohol dependence, uncomplicated; N31.9 Neuromuscular dysfunction of bladder, unspecified; N35.9 Urethral stricture, unspecified; N40.0 Benign prostatic hyperplasia without lower urinary tract symptoms; Z74.01 Bed confinement status; Z79.899 Other long term (current) drug therapy; I25.2 Old myocardial infarction; Z87.891 Personal history of nicotine dependence; Z89.511 Acquired absence of right leg below knee; Z99.2 Dependence on renal dialysis; Z79.82 Long term (current) use of aspirin
CPT/HCPCS: 31500; 36415; 36556; 36558; 36569; 36600; 70450; 70551; 71010; 76700; 76937; 77001; 78580; 80048; 80053; 80061; 80202; 81001; 82270; 82375; 82550; 82553; 82570; 82607; 82728; 82746; 82805; 82962; 83010; 83540; 83550; 83605; 83615; 83735; 84100; 84156; 84443; 84484; 85025; 85044; 85362; 85379; 85384; 85610; 85732; 86038; 86160; 86705; 86709; 86803; 87040; 87070; 87077; 87086; 87186; 87340; 87493; 92610; 93005; 93306; 93970; 94002; 94003; 94640; 94667; 96361; 96365; 96375; 97163; 99291; A6261; C1725; C1750; C1752; C9113; J0696; J1160; J1644; J1650; J1815; J1953; J2270; J2543; J2704; J2765; J3010; J3370; J3480; J3490; J7030; J7050; J7060; J7070; J7608; J7611; A4315

== ENCOUNTER 2017-01-01 23:03 | Inpatient (IN) | payer OTHER ==
[~2017-01-01] VITALS: Ht 167.6 cm; Wt 68.0 kg
[~2017-01-01 23:03] MED LIST: ASPI-1159 PO; Atorvastatin Calcium PO; CARV6.2548 PO; FERR325T6 PO; FINA5TAB11 PO; LEVE500T19 PO; MIRT15TA6 PO; QUET50TA PO; RANI150T7 PO
[2017-01-02] MEDS ORDERED: SODIUM CHLORIDE 0.9% 500 ML IV ONE (12:56)
[2017-01-02 13:12] LABS: BASOPHILS % 0.4 % (0.0-2.0); EOSINOPHILS % 1.4 % (0.0-5.0); HEMATOCRIT. 34.2 % (42.0-52.0); HEMOGLOBIN. 11.6 g/dL (14.0-18.0); LYMPHOCYTES % 19.5 % (20.0-50.0); MEAN CORPUSCULAR HEMOGLOBIN 29.2 pg (28.0-32.0); MEAN CORPUSCULAR VOLUME 86.1 fL (80.0-94.0); MEAN PLATELET VOLUME 8.3 fl (7.4-10.4); NEUTROPHILS % 70.7 % (40.0-76.0); PLATELET 225 x1000/uL (130-400); RED BLOOD CELL COUNT 3.97 mill/uL (4.7-6.1); RED CELL DISTRIBUTION WIDTH 14.2 % (11.6-14.6)
[2017-01-02] MEDS: VANCOMYCIN 1 G PREMIX 200 ML IV SCH ×2 (14:02→14:06)
[2017-01-02] MEDS ORDERED: VANCOMYCIN 1 G PREMIX 200 ML IV SCH (15:45)
[2017-01-02] MEDS ORDERED: IPRATROPIUM/ALBUTEROL 0.5-3(2.5)MG/3ML NEB INH PRN (15:45)
[2017-01-02] MEDS: ONDANSETRON HCL 4MG/2ML VIAL IV PRN ×2 (17:32→18:36)
[2017-01-02] MEDS: DIPHENHYDRAMINE 50MG/ML VIAL IV PRN ×2 (17:32→18:36)
[2017-01-02] MEDS: ACETAMINOPHEN 650MG/20.3ML UDC GT PRN ×2 (17:32→18:37)
[2017-01-02] MEDS ORDERED: VANCOMYCIN 500 MG PREMIX 100 ML IV NR (23:00)
[2017-01-03] VITALS (12 sets, daily range): BP systolic 125–169; BP diastolic 59–79
[2017-01-03 06:10] LABS: BASOPHILS % 0.6 % (0.0-2.0); EOSINOPHILS % 2.8 % (0.0-5.0); HEMATOCRIT. 33.5 % (42.0-52.0); HEMOGLOBIN. 11.5 g/dL (14.0-18.0); LYMPHOCYTES % 15.1 % (20.0-50.0); MEAN CORPUSCULAR HEMOGLOBIN 29.6 pg (28.0-32.0); MEAN CORPUSCULAR VOLUME 86.4 fL (80.0-94.0); MEAN PLATELET VOLUME 8.9 fl (7.4-10.4); MONOCYTES % 8.9 % (2.0-8.0); NEUTROPHILS % 72.6 % (40.0-76.0); PLATELET 229 x1000/uL (130-400); RED BLOOD CELL COUNT 3.88 mill/uL (4.7-6.1); RED CELL DISTRIBUTION WIDTH 14.7 % (11.6-14.6)
[2017-01-03] MEDS: DILTIAZEM HCL 30MG TABLET PO SCH ×3 (06:59→21:24)
[2017-01-03 07:11] LABS: CARBON DIOXIDE 19 mEq/L (21-32); CHLORIDE 109 mEq/L (98-107); HDL CHOLESTEROL 44 mg/dL (40-59); LDL CHOLESTEROL 115 mg/dL (5-100)
[2017-01-03] MEDS: FINASTERIDE 5MG TABLET PO SCH (08:56)
[2017-01-03] MEDS: ASPIRIN 81MG EC TABLET PO SCH (08:56)
[2017-01-03] MEDS: FERROUS SULFATE 325MG TABLET PO SCH ×2 (08:56→18:06)
[2017-01-03] MEDS: LEVETIRACETAM 500MG TABLET PO SCH ×2 (08:56→20:29)
[2017-01-03] MEDS ORDERED: CARVEDILOL 3.125 MG TABLET PO SCH (09:00)
[2017-01-03] MEDS ORDERED: MEDICATION NOT ON FORMULARY EA (Ferrous Sulfate 325 MG) PO SCH (09:00)
[2017-01-03] MEDS ORDERED: HEPARIN SODIUM 1,000 UNIT/1ML VIAL IV NR (13:00)
[2017-01-03] MEDS: IPRATROPIUM/ALBUTEROL 0.5-3(2.5)MG/3ML NEB HHN SCH ×2 (16:00→20:11)
[2017-01-03] MEDS: ACETYLCYSTEINE 100MG/ML 10% VIAL 4ML INH SCH (16:00)
[2017-01-03] MEDS: MIRTAZAPINE 15MG TABLET PO SCH (18:06)
[2017-01-03] MEDS: QUETIAPINE FUMARATE 50MG TABLET PO SCH (18:06)
[2017-01-03] MEDS: DILTIAZEM HCL 5MG/ML 5ML VIAL IV PRN (20:29)
[2017-01-03] MEDS: PANTOPRAZOLE SODIUM 40 MG/VIAL IV SCH (20:29)
[2017-01-03] MEDS ORDERED: FAMOTIDINE 20MG TABLET PO SCH (21:00)
[2017-01-03] MEDS ORDERED: MEDICATION NOT ON FORMULARY EA (Ranitidine Hcl 1 TAB) PO SCH (21:00)
[2017-01-04] VITALS (19 sets, daily range): BP systolic 70–141; BP diastolic 40–78
[2017-01-04] MEDS: ACETYLCYSTEINE 100MG/ML 10% VIAL 4ML INH SCH ×4 (00:15→20:17)
[2017-01-04] MEDS: IPRATROPIUM/ALBUTEROL 0.5-3(2.5)MG/3ML NEB HHN SCH ×6 (00:15→20:14)
[2017-01-04] MEDS: DILTIAZEM HCL 30MG TABLET PO SCH ×3 (06:45→17:21)
[2017-01-04 06:59] LABS: AMMONIA 18 uMol/L (<32)
[2017-01-04 07:04] LABS: INR 1.1; PROTHROMBIN TIME 11.4 sec (9.4-11.6)
[2017-01-04 07:49] LABS: BASOPHILS % 0.9 % (0.0-2.0); EOSINOPHILS % 0.7 % (0.0-5.0); HEMATOCRIT. 34.7 % (42.0-52.0); HEMOGLOBIN. 11.5 g/dL (14.0-18.0); LYMPHOCYTES % 19.9 % (20.0-50.0); MEAN CORPUSCULAR HEMOGLOBIN 29.1 pg (28.0-32.0); MEAN CORPUSCULAR VOLUME 87.5 fL (80.0-94.0); MONOCYTES % 9.5 % (2.0-8.0); PLATELET 228 x1000/uL (130-400); RED BLOOD CELL COUNT 3.96 mill/uL (4.7-6.1); RED CELL DISTRIBUTION WIDTH 14.4 % (11.6-14.6)
[2017-01-04 07:52] LABS: PARTIAL THROMBOPLASTIN TIME < 21.0 sec (23.4-31.0)
[2017-01-04] MEDS: FERROUS SULFATE 325MG TABLET PO SCH ×2 (08:00→17:22)
[2017-01-04] MEDS: LEVETIRACETAM 500MG TABLET PO SCH ×2 (09:00→17:22)
[2017-01-04] MEDS: FINASTERIDE 5MG TABLET PO SCH (09:00)
[2017-01-04] MEDS: ASPIRIN 81MG EC TABLET PO SCH (09:00)
[2017-01-04] MEDS: PANTOPRAZOLE SODIUM 40 MG/VIAL IV SCH ×2 (09:13→21:57)
[2017-01-04] MEDS: PIPERACILLIN/TAZ 2.25G PREMIX 50 ML IV SCH ×2 (11:19→17:36)
[2017-01-04 13:55] LABS: BG BASE EXCESS -3.9 mmol/L (-2.0-2.0); BG CARBOXYHEMOGLOBIN 0.9 % (0.5-1.5); BG DEOXYHEMOGLOBIN 4.2 % (0.0-5.0); BG HCO3 ACT 19.7 mmol/L (22.0-26.0); BG METHEMOGLOBIN 0.4 % (0.0-1.5); BG OXYGEN SATURATION 95.7 % (92.0-98.5); BG OXYHEMOGLOBIN 94.5 % (94.0-97.0); BG PCO2 32.3 mmHg (35.0-45.0); BG PH 7.404 (7.350-7.450); BG PO2 81.8 mmHg (75.0-100.0); BG SAMPLE SITE RIGHT BRACHIAL; BG TOTAL HEMOGLOBIN 15.1 g/dL (12.0-18.0); BG VENT MODE MASK - NRB
[2017-01-04] MEDS: DILTIAZEM HCL 5MG/ML 5ML VIAL IV PRN (15:22)
[2017-01-04] MEDS: MIRTAZAPINE 15MG TABLET PO SCH (17:20)
[2017-01-04] MEDS: QUETIAPINE FUMARATE 50MG TABLET PO SCH (17:20)
[2017-01-04] MEDS ORDERED: SODIUM CHLORIDE 0.9% 250 ML IV NR (19:30)
[2017-01-04] MEDS: ACETAMINOPHEN 650MG/20.3ML UDC GT PRN (19:53)
[2017-01-04] MEDS: AMIODARONE HCL 200 MG TABLET NG SCH (19:53)
[2017-01-05] VITALS (86 sets, daily range): BP systolic 76–139; BP diastolic 46–84
[2017-01-05] MEDS: NOREPINEPHRINE 4 MG in DEXT 5% WATER 246 ML IV PRN ×2 (00:01→09:20)
[2017-01-05] MEDS: IPRATROPIUM/ALBUTEROL 0.5-3(2.5)MG/3ML NEB HHN SCH ×6 (02:34→20:17)
[2017-01-05] MEDS: ACETYLCYSTEINE 100MG/ML 10% VIAL 4ML INH SCH ×2 (02:38→11:50)
[2017-01-05] MEDS: PIPERACILLIN/TAZ 2.25G PREMIX 50 ML IV SCH ×3 (02:48→18:15)
[2017-01-05] MEDS: DILTIAZEM HCL 30MG TABLET NG SCH ×4 (05:25→18:00)
[2017-01-05] MEDS: FERROUS SULFATE 325MG TABLET PO SCH ×2 (06:14→16:28)
[2017-01-05] MEDS: LEVETIRACETAM 500MG TABLET PO SCH ×2 (09:00→21:33)
[2017-01-05] MEDS: ASPIRIN 81MG EC TABLET PO SCH (09:00)
[2017-01-05] MEDS: AMIODARONE HCL 200 MG TABLET NG SCH ×3 (09:00→17:00)
[2017-01-05] MEDS: FINASTERIDE 5MG TABLET PO SCH ×2 (09:00→13:09)
[2017-01-05] MEDS: PANTOPRAZOLE SODIUM 40 MG/VIAL IV SCH ×2 (09:00→21:33)
[2017-01-05] MEDS ORDERED: FENTANYL CITRATE/PF 50MCG/ML 2ML VIAL ONE (09:43)
[2017-01-05] MEDS ORDERED: MIDAZOLAM HCL 5 MG/5 ML VIAL ONE (09:43)
[2017-01-05] MEDS ORDERED: DIGOXIN 500MCG/2ML AMP IV SCH (11:00)
[2017-01-05 12:17] LABS: CLARITY URINE TURBID (CLEAR); COLOR URINE YELLOW (YELLOW); GLUCOSE URINE NEGATIVE (NEGATIVE); KETONES URINE NEGATIVE (NEGATIVE); LEUKOCYTE ESTERASE URINE 2+ (NEGATIVE); NITRITE URINE NEGATIVE (NEGATIVE); OCCULT BLOOD URINE NEGATIVE (NEGATIVE); PROTEIN URINE TRACE (NEGATIVE); SPECIFIC GRAVITY URINE 1.018 (1.005-1.030); UROBILINOGEN URINE 0.2 E.U./dL (0.2-1.0)
[2017-01-05] MEDS: ACETAMINOPHEN 650MG/20.3ML UDC GT PRN (13:09)
[2017-01-05] MEDS: DIGOXIN 500MCG/2ML AMP IV PRN (13:23)
[2017-01-05] MEDS: QUETIAPINE FUMARATE 50MG TABLET PO SCH (16:28)
[2017-01-05] MEDS: MIRTAZAPINE 15MG TABLET PO SCH (16:28)
[2017-01-05] MEDS: HYDROCODONE/ACETAMINOPHEN 5/325MG TABLET PO PRN (16:31)
[2017-01-06] VITALS (95 sets, daily range): BP systolic 69–141; BP diastolic 34–92
[2017-01-06] MEDS: IPRATROPIUM/ALBUTEROL 0.5-3(2.5)MG/3ML NEB HHN SCH ×6 (00:08→20:24)
[2017-01-06] MEDS: ACETYLCYSTEINE 100MG/ML 10% VIAL 4ML INH SCH ×3 (00:08→13:30)
[2017-01-06] MEDS: PIPERACILLIN/TAZ 2.25G PREMIX 50 ML IV SCH ×3 (01:44→18:37)
[2017-01-06] MEDS: HYDROCODONE/ACETAMINOPHEN 5/325MG TABLET PO PRN (01:45)
[2017-01-06] MEDS: DILTIAZEM HCL 30MG TABLET NG SCH ×4 (05:17→18:37)
[2017-01-06 06:08] LABS: BASOPHILS % 0.6 % (0.0-2.0); EOSINOPHILS % 3.4 % (0.0-5.0); HEMATOCRIT. 34.9 % (42.0-52.0); HEMOGLOBIN. 11.6 g/dL (14.0-18.0); LYMPHOCYTES % 7.6 % (20.0-50.0); MEAN CORPUSCULAR HEMOGLOBIN 29.3 pg (28.0-32.0); MEAN CORPUSCULAR VOLUME 88.2 fL (80.0-94.0); MEAN PLATELET VOLUME 9.7 fl (7.4-10.4); MONOCYTES % 6.8 % (2.0-8.0); NEUTROPHILS % 81.6 % (40.0-76.0); PLATELET 218 x1000/uL (130-400); RED BLOOD CELL COUNT 3.96 mill/uL (4.7-6.1); RED CELL DISTRIBUTION WIDTH 14.3 % (11.6-14.6)
[2017-01-06] MEDS: FERROUS SULFATE 325MG TABLET PO SCH ×2 (06:49→16:30)
[2017-01-06] MEDS: LEVETIRACETAM 500MG TABLET PO SCH ×2 (09:23→21:31)
[2017-01-06] MEDS: PANTOPRAZOLE SODIUM 40 MG/VIAL IV SCH ×2 (09:23→21:31)
[2017-01-06] MEDS: ACETAMINOPHEN 650MG/20.3ML UDC GT PRN (09:23)
[2017-01-06] MEDS: AMIODARONE HCL 200 MG TABLET NG SCH ×3 (09:23→16:30)
[2017-01-06] MEDS: ASPIRIN 81MG EC TABLET PO SCH (09:23)
[2017-01-06] MEDS ORDERED: ALBUMIN HUMAN 12.5G/250ML (5%) IV NR (11:30)
[2017-01-06] MEDS ORDERED: HEPARIN SODIUM 1,000 UNIT/1ML VIAL IV SCH (13:30)
[2017-01-06 15:01] LABS: BG BASE EXCESS -10.9 mmol/L (-2.0-2.0); BG CARBOXYHEMOGLOBIN 0.2 % (0.5-1.5); BG DEOXYHEMOGLOBIN 1.5 % (0.0-5.0); BG FRACTION INSPIRED OXYGEN 100; BG HCO3 ACT 15.5 mmol/L (22.0-26.0); BG METHEMOGLOBIN 0.3 % (0.0-1.5); BG OXYGEN SATURATION 98.5 % (92.0-98.5); BG PCO2 36.6 mmHg (35.0-45.0); BG PH 7.245 (7.350-7.450); BG PO2 146.6 mmHg (75.0-100.0); BG SAMPLE SITE RIGHT BRACHIAL; BG TIDAL VOLUME(mL) 700 mL; BG TOTAL HEMOGLOBIN 13.8 g/dL (12.0-18.0); BG VENT MODE VENT - A/C; BG VENT RATE 16 set
[2017-01-06] MEDS: QUETIAPINE FUMARATE 50MG TABLET PO SCH (16:30)
[2017-01-06] MEDS: MIRTAZAPINE 15MG TABLET PO SCH (16:30)
[2017-01-06] MEDS: MICAFUNGIN 100 MG in SODIUM CHLORIDE 0.9% 100 ML IV SCH (16:30)
[2017-01-06] MEDS: NOREPINEPHRINE 4 MG in DEXT 5% WATER 246 ML IV PRN (16:47)
[2017-01-06 17:42] LABS: BG BASE EXCESS -6.3 mmol/L (-2.0-2.0); BG CARBOXYHEMOGLOBIN 0.3 % (0.5-1.5); BG DEOXYHEMOGLOBIN 0.6 % (0.0-5.0); BG FRACTION INSPIRED OXYGEN 100; BG METHEMOGLOBIN 0.3 % (0.0-1.5); BG OXYGEN SATURATION 99.4 % (92.0-98.5); BG OXYHEMOGLOBIN 98.8 % (94.0-97.0); BG PCO2 37.2 mmHg (35.0-45.0); BG PH 7.327 (7.350-7.450); BG PO2 364.5 mmHg (75.0-100.0); BG SAMPLE SITE RIGHT BRACHIAL; BG TIDAL VOLUME(mL) 700 mL; BG TOTAL HEMOGLOBIN 13.1 g/dL (12.0-18.0); BG VENT MODE VENT - A/C; BG VENT RATE 16 set
[2017-01-07] VITALS (91 sets, daily range): BP systolic 82–155; BP diastolic 51–78
[2017-01-07] MEDS: DILTIAZEM HCL 30MG TABLET NG SCH ×5 (00:16→23:42)
[2017-01-07] MEDS: NOREPINEPHRINE 4 MG in DEXT 5% WATER 246 ML IV PRN (00:17)
[2017-01-07] MEDS: ACETYLCYSTEINE 100MG/ML 10% VIAL 4ML INH SCH ×3 (00:24→16:52)
[2017-01-07] MEDS: IPRATROPIUM/ALBUTEROL 0.5-3(2.5)MG/3ML NEB HHN SCH ×6 (00:24→20:03)
[2017-01-07] MEDS: PIPERACILLIN/TAZ 2.25G PREMIX 50 ML IV SCH ×3 (01:53→17:10)
[2017-01-07 05:28] LABS: BASOPHILS % 0.5 % (0.0-2.0); EOSINOPHILS % 0.1 % (0.0-5.0); HEMOGLOBIN. 12.7 g/dL (14.0-18.0); LYMPHOCYTES % 11.6 % (20.0-50.0); MEAN CORPUSCULAR HEMOGLOBIN 29.3 pg (28.0-32.0); MEAN CORPUSCULAR VOLUME 87.7 fL (80.0-94.0); MEAN PLATELET VOLUME 9.7 fl (7.4-10.4); MONOCYTES % 7.1 % (2.0-8.0); NEUTROPHILS % 80.7 % (40.0-76.0); PLATELET 262 x1000/uL (130-400); RED BLOOD CELL COUNT 4.34 mill/uL (4.7-6.1); RED CELL DISTRIBUTION WIDTH 14.5 % (11.6-14.6)
[2017-01-07 05:56] LABS: PHOSPHORUS 6.8 mg/dL (2.5-4.9)
[2017-01-07] MEDS: FERROUS SULFATE 325MG TABLET PO SCH ×2 (06:07→17:10)
[2017-01-07] MEDS: DEXT 5%/0.45% NACL 1000ML 1,000 ML IV SCH (06:07)
[2017-01-07] MEDS: PANTOPRAZOLE SODIUM 40 MG/VIAL IV SCH ×2 (09:12→20:06)
[2017-01-07] MEDS: AMIODARONE HCL 200 MG TABLET NG SCH ×3 (09:13→17:09)
[2017-01-07] MEDS: FINASTERIDE 5MG TABLET PO SCH (09:13)
[2017-01-07] MEDS: LEVETIRACETAM 500MG TABLET PO SCH ×2 (09:13→20:06)
[2017-01-07] MEDS: MICAFUNGIN 100 MG in SODIUM CHLORIDE 0.9% 100 ML IV SCH (09:13)
[2017-01-07] MEDS: ASPIRIN 81MG EC TABLET PO SCH (09:13)
[2017-01-07] MEDS: ACETAMINOPHEN 650MG/20.3ML UDC GT PRN (09:17)
[2017-01-07 09:19] LABS: BG BASE EXCESS -6.8 mmol/L (-2.0-2.0); BG CARBOXYHEMOGLOBIN 0.3 % (0.5-1.5); BG DEOXYHEMOGLOBIN 0.9 % (0.0-5.0); BG FRACTION INSPIRED OXYGEN 80; BG HCO3 ACT 16.9 mmol/L (22.0-26.0); BG METHEMOGLOBIN 0.9 % (0.0-1.5); BG OXYGEN SATURATION 99.1 % (92.0-98.5); BG OXYHEMOGLOBIN 97.9 % (94.0-97.0); BG PH 7.383 (7.350-7.450); BG PO2 226.5 mmHg (75.0-100.0); BG SAMPLE SITE RIGHT BRACHIAL; BG TIDAL VOLUME(mL) 700 mL; BG TOTAL HEMOGLOBIN 13.3 g/dL (12.0-18.0); BG VENT MODE VENT - A/C; BG VENT RATE 16 set
[2017-01-07] MEDS ORDERED: VANCOMYCIN 1 G PREMIX 200 ML IV NR (12:00)
[2017-01-07] MEDS: ENOXAPARIN 30MG/0.3ML SYR SUBCUT SCH (12:34)
[2017-01-07] MEDS: QUETIAPINE FUMARATE 50MG TABLET PO SCH (17:00)
[2017-01-07] MEDS: NOREPINEPHRINE 16 MG in DEXT 5% WATER 234 ML IV PRN (17:09)
[2017-01-07] MEDS: MIRTAZAPINE 15MG TABLET PO SCH (17:10)
[2017-01-08] VITALS (87 sets, daily range): BP systolic 85–148; BP diastolic 24–95
[2017-01-08] MEDS: IPRATROPIUM/ALBUTEROL 0.5-3(2.5)MG/3ML NEB HHN SCH ×5 (00:16→20:04)
[2017-01-08] MEDS: ACETYLCYSTEINE 100MG/ML 10% VIAL 4ML INH SCH ×3 (00:16→16:13)
[2017-01-08] MEDS: PIPERACILLIN/TAZ 2.25G PREMIX 50 ML IV SCH ×4 (02:31→18:05)
[2017-01-08] MEDS: DEXT 5%/0.45% NACL 1000ML 1,000 ML IV SCH ×2 (02:34→20:49)
[2017-01-08 05:40] LABS: BASOPHILS % 0.4 % (0.0-2.0); EOSINOPHILS % 0.1 % (0.0-5.0); HEMATOCRIT. 32.4 % (42.0-52.0); HEMOGLOBIN. 10.8 g/dL (14.0-18.0); LYMPHOCYTES % 16.9 % (20.0-50.0); MEAN CORPUSCULAR HEMOGLOBIN 29.3 pg (28.0-32.0); MEAN CORPUSCULAR VOLUME 87.9 fL (80.0-94.0); MONOCYTES % 8.8 % (2.0-8.0); NEUTROPHILS % 73.8 % (40.0-76.0); PLATELET 208 x1000/uL (130-400); RED BLOOD CELL COUNT 3.68 mill/uL (4.7-6.1); RED CELL DISTRIBUTION WIDTH 14.5 % (11.6-14.6)
[2017-01-08] MEDS: FERROUS SULFATE 325MG TABLET PO SCH ×2 (05:57→18:05)
[2017-01-08] MEDS: DILTIAZEM HCL 30MG TABLET NG SCH ×2 (05:58→18:00)
[2017-01-08 08:34] LABS: BG BASE EXCESS -10.6 mmol/L (-2.0-2.0); BG CARBOXYHEMOGLOBIN 0.3 % (0.5-1.5); BG DEOXYHEMOGLOBIN 1.8 % (0.0-5.0); BG FRACTION INSPIRED OXYGEN 50; BG HCO3 ACT 13.8 mmol/L (22.0-26.0); BG METHEMOGLOBIN 0.2 % (0.0-1.5); BG OXYGEN SATURATION 98.2 % (92.0-98.5); BG OXYHEMOGLOBIN 97.7 % (94.0-97.0); BG PCO2 26.6 mmHg (35.0-45.0); BG PH 7.334 (7.350-7.450); BG PO2 138.9 mmHg (75.0-100.0); BG SAMPLE SITE LEFT BRACHIAL; BG TIDAL VOLUME(mL) 700 mL; BG TOTAL HEMOGLOBIN 11.3 g/dL (12.0-18.0); BG VENT MODE VENT - A/C; BG VENT RATE 16 set
[2017-01-08] MEDS ORDERED: HEPARIN SODIUM 1,000 UNIT/1ML VIAL IV SCH (08:45)
[2017-01-08] MEDS: MICAFUNGIN 100 MG in SODIUM CHLORIDE 0.9% 100 ML IV SCH (09:00)
[2017-01-08] MEDS: PANTOPRAZOLE SODIUM 40 MG/VIAL IV SCH ×2 (09:00→20:48)
[2017-01-08] MEDS: ENOXAPARIN 30MG/0.3ML SYR SUBCUT SCH (09:00)
[2017-01-08] MEDS: ASPIRIN 81MG EC TABLET PO SCH (09:00)
[2017-01-08] MEDS: FINASTERIDE 5MG TABLET PO SCH (09:00)
[2017-01-08] MEDS: LEVETIRACETAM 500MG TABLET PO SCH ×2 (09:00→20:48)
[2017-01-08] MEDS: METOCLOPRAMIDE HCL 10MG/2ML VIAL IV SCH ×3 (12:00→23:41)
[2017-01-08] MEDS: QUETIAPINE FUMARATE 50MG TABLET PO SCH (17:00)
[2017-01-08] MEDS: MIRTAZAPINE 15MG TABLET PO SCH (17:00)
[2017-01-08] MEDS: AMIODARONE HCL 200 MG TABLET NG SCH (17:00)
[2017-01-09] VITALS (88 sets, daily range): BP systolic 39–145; BP diastolic 25–67
[2017-01-09] MEDS: IPRATROPIUM/ALBUTEROL 0.5-3(2.5)MG/3ML NEB HHN SCH ×7 (00:16→23:57)
[2017-01-09] MEDS: DILTIAZEM HCL 30MG TABLET NG SCH ×3 (01:55→18:00)
[2017-01-09] MEDS: ONDANSETRON HCL 4MG/2ML VIAL IV PRN (05:16)
[2017-01-09 05:40] LABS: HEMATOCRIT. 29.7 % (42.0-52.0); MEAN CORPUSCULAR HEMOGLOBIN 29.4 pg (28.0-32.0); MEAN PLATELET VOLUME 9.9 fl (7.4-10.4); PLATELET 180 x1000/uL (130-400); RED BLOOD CELL COUNT 3.41 mill/uL (4.7-6.1); RED CELL DISTRIBUTION WIDTH 14.4 % (11.6-14.6)
[2017-01-09 06:38] LABS: PLATELET ESTIMATE NORMAL
[2017-01-09] MEDS: FERROUS SULFATE 325MG TABLET PO SCH ×2 (06:49→18:20)
[2017-01-09 08:01] LABS: BG BASE EXCESS -4.3 mmol/L (-2.0-2.0); BG CARBOXYHEMOGLOBIN 0.3 % (0.5-1.5); BG DEOXYHEMOGLOBIN 1.1 % (0.0-5.0); BG FRACTION INSPIRED OXYGEN 50; BG HCO3 ACT 20.9 mmol/L (22.0-26.0); BG METHEMOGLOBIN 0.4 % (0.0-1.5); BG OXYGEN SATURATION 98.9 % (92.0-98.5); BG OXYHEMOGLOBIN 98.2 % (94.0-97.0); BG PCO2 38.6 mmHg (35.0-45.0); BG PH 7.351 (7.350-7.450); BG PO2 165.5 mmHg (75.0-100.0); BG SAMPLE SITE RIGHT RADIAL; BG TIDAL VOLUME(mL) 700 mL; BG VENT MODE VENT - A/C; BG VENT RATE 16 set
[2017-01-09] MEDS: AMIODARONE HCL 200 MG TABLET NG SCH ×2 (09:00→17:00)
[2017-01-09] MEDS ORDERED: POTASSIUM CHLORIDE INJ 40 MEQ in DEXT 5% WATER 250 ML IV NR (09:00)
[2017-01-09] MEDS: PANTOPRAZOLE SODIUM 40 MG/VIAL IV SCH ×2 (09:14→21:42)
[2017-01-09] MEDS: LEVETIRACETAM 500MG TABLET PO SCH ×2 (09:14→21:41)
[2017-01-09] MEDS: MICAFUNGIN 100 MG in SODIUM CHLORIDE 0.9% 100 ML IV SCH (09:15)
[2017-01-09] MEDS: ASPIRIN 81MG EC TABLET PO SCH (09:15)
[2017-01-09] MEDS: FINASTERIDE 5MG TABLET PO SCH (09:15)
[2017-01-09] MEDS: ENOXAPARIN 30MG/0.3ML SYR SUBCUT SCH (09:16)
[2017-01-09] MEDS: PIPERACILLIN/TAZ 2.25G PREMIX 50 ML IV SCH ×2 (11:11→18:23)
[2017-01-09 13:29] LABS: BG BASE EXCESS -6.8 mmol/L (-2.0-2.0); BG CARBOXYHEMOGLOBIN 0.3 % (0.5-1.5); BG DEOXYHEMOGLOBIN 3.6 % (0.0-5.0); BG FRACTION INSPIRED OXYGEN 40; BG HCO3 ACT 17.4 mmol/L (22.0-26.0); BG OXYGEN SATURATION 96.4 % (92.0-98.5); BG OXYHEMOGLOBIN 96.1 % (94.0-97.0); BG PCO2 30.1 mmHg (35.0-45.0); BG PH 7.379 (7.350-7.450); BG PRESSURE SUPPORT 8; BG SAMPLE SITE RIGHT BRACHIAL; BG TOTAL HEMOGLOBIN 10.2 g/dL (12.0-18.0); BG VENT MODE VENT - CPAP
[2017-01-09] MEDS: MIRTAZAPINE 15MG TABLET PO SCH (18:20)
[2017-01-09] MEDS: QUETIAPINE FUMARATE 50MG TABLET PO SCH (18:21)
[2017-01-09] MEDS: DEXT 5%/0.45% NACL 1000ML 1,000 ML IV SCH (19:24)
[2017-01-10] VITALS (57 sets, daily range): BP systolic 88–139; BP diastolic 36–85
[2017-01-10] MEDS: PIPERACILLIN/TAZ 2.25G PREMIX 50 ML IV SCH ×3 (01:21→17:43)
[2017-01-10] MEDS: DILTIAZEM HCL 30MG TABLET NG SCH ×3 (01:55→17:43)
[2017-01-10] MEDS: IPRATROPIUM/ALBUTEROL 0.5-3(2.5)MG/3ML NEB HHN SCH ×5 (03:26→20:58)
[2017-01-10 05:35] LABS: HEMATOCRIT. 26.6 % (42.0-52.0); HEMOGLOBIN. 8.9 g/dL (14.0-18.0); MEAN CORPUSCULAR HEMOGLOBIN 29.3 pg (28.0-32.0); MEAN PLATELET VOLUME 9.7 fl (7.4-10.4); PLATELET 143 x1000/uL (130-400); RED BLOOD CELL COUNT 3.02 mill/uL (4.7-6.1); RED CELL DISTRIBUTION WIDTH 14.6 % (11.6-14.6)
[2017-01-10 06:11] LABS: PHOSPHORUS 5.9 mg/dL (2.5-4.9)
[2017-01-10] MEDS: FERROUS SULFATE 325MG TABLET PO SCH ×2 (07:04→17:40)
[2017-01-10 07:05] LABS: BG BASE EXCESS -7.1 mmol/L (-2.0-2.0); BG CARBOXYHEMOGLOBIN 0.3 % (0.5-1.5); BG DEOXYHEMOGLOBIN 2.7 % (0.0-5.0); BG HCO3 ACT 17.4 mmol/L (22.0-26.0); BG METHEMOGLOBIN 0.3 % (0.0-1.5); BG OXYGEN SATURATION 97.3 % (92.0-98.5); BG OXYHEMOGLOBIN 96.7 % (94.0-97.0); BG PCO2 31.8 mmHg (35.0-45.0); BG PH 7.355 (7.350-7.450); BG PO2 112.9 mmHg (75.0-100.0); BG SAMPLE SITE RIGHT BRACHIAL; BG TIDAL VOLUME(mL) 500 mL; BG TOTAL HEMOGLOBIN 11.7 g/dL (12.0-18.0); BG VENT MODE VENT - A/C; BG VENT RATE 16 set
[2017-01-10] MEDS ORDERED: HEPARIN SODIUM 1,000 UNIT/1ML VIAL IV SCH (09:15)
[2017-01-10] MEDS ORDERED: HEPARIN SODIUM 1,000 UNIT/1ML VIAL IV ONE (09:45)
[2017-01-10 10:43] LABS: PLATELET ESTIMATE NORMAL
[2017-01-10] MEDS: PANTOPRAZOLE SODIUM 40 MG/VIAL IV SCH ×2 (11:12→21:46)
[2017-01-10] MEDS: MICAFUNGIN 100 MG in SODIUM CHLORIDE 0.9% 100 ML IV SCH (11:12)
[2017-01-10] MEDS: AMIODARONE HCL 200 MG TABLET NG SCH ×2 (11:13→17:40)
[2017-01-10] MEDS: ASPIRIN 81MG EC TABLET PO SCH (11:13)
[2017-01-10] MEDS: FINASTERIDE 5MG TABLET PO SCH (11:13)
[2017-01-10] MEDS: ENOXAPARIN 30MG/0.3ML SYR SUBCUT SCH (11:13)
[2017-01-10] MEDS: LEVETIRACETAM 500MG TABLET PO SCH ×2 (11:13→21:45)
[2017-01-10] MEDS: METOCLOPRAMIDE HCL 5MG TABLET PO SCH ×2 (11:41→21:45)
[2017-01-10 13:22] LABS: BG BASE EXCESS 2.8 mmol/L (-2.0-2.0); BG CARBOXYHEMOGLOBIN 0.3 % (0.5-1.5); BG DEOXYHEMOGLOBIN 5.1 % (0.0-5.0); BG FRACTION INSPIRED OXYGEN 40; BG HCO3 ACT 25.4 mmol/L (22.0-26.0); BG METHEMOGLOBIN 0.2 % (0.0-1.5); BG OXYGEN SATURATION 94.9 % (92.0-98.5); BG OXYHEMOGLOBIN 94.4 % (94.0-97.0); BG PCO2 31.7 mmHg (35.0-45.0); BG PH 7.521 (7.350-7.450); BG PO2 70.4 mmHg (75.0-100.0); BG PRESSURE SUPPORT 8; BG SAMPLE SITE RIGHT BRACHIAL; BG TOTAL HEMOGLOBIN 10.2 g/dL (12.0-18.0); BG VENT MODE VENT - CPAP
[2017-01-10] MEDS: MIRTAZAPINE 15MG TABLET PO SCH (17:42)
[2017-01-10] MEDS: QUETIAPINE FUMARATE 50MG TABLET PO SCH (17:43)
[2017-01-10] MEDS: DEXT 5%/0.45% NACL 1000ML 1,000 ML IV SCH (19:24)
[2017-01-11] VITALS (56 sets, daily range): BP systolic 92–143; BP diastolic 38–80
[2017-01-11] MEDS: IPRATROPIUM/ALBUTEROL 0.5-3(2.5)MG/3ML NEB HHN SCH ×6 (00:37→20:10)
[2017-01-11] MEDS: DILTIAZEM HCL 30MG TABLET NG SCH ×3 (01:38→17:38)
[2017-01-11] MEDS: PIPERACILLIN/TAZ 2.25G PREMIX 50 ML IV SCH ×3 (01:39→17:37)
[2017-01-11] MEDS: METOCLOPRAMIDE HCL 5MG TABLET PO SCH ×3 (05:02→21:23)
[2017-01-11] MEDS: FERROUS SULFATE 325MG TABLET PO SCH ×2 (07:13→17:37)
[2017-01-11 07:48] LABS: BASOPHILS % 0.2 % (0.0-2.0); EOSINOPHILS % 1.4 % (0.0-5.0); HEMATOCRIT. 26.4 % (42.0-52.0); HEMOGLOBIN. 8.7 g/dL (14.0-18.0); LYMPHOCYTES % 7.2 % (20.0-50.0); MEAN CORPUSCULAR HEMOGLOBIN 29.1 pg (28.0-32.0); MEAN CORPUSCULAR VOLUME 87.7 fL (80.0-94.0); MEAN PLATELET VOLUME 9.7 fl (7.4-10.4); NEUTROPHILS % 86.2 % (40.0-76.0); PLATELET 142 x1000/uL (130-400); RED CELL DISTRIBUTION WIDTH 14.8 % (11.6-14.6)
[2017-01-11] MEDS: MICAFUNGIN 100 MG in SODIUM CHLORIDE 0.9% 100 ML IV SCH (09:01)
[2017-01-11] MEDS: PANTOPRAZOLE SODIUM 40 MG/VIAL IV SCH ×2 (09:01→21:23)
[2017-01-11] MEDS: FINASTERIDE 5MG TABLET PO SCH (09:02)
[2017-01-11] MEDS: AMIODARONE HCL 200 MG TABLET NG SCH ×2 (09:02→17:37)
[2017-01-11] MEDS: LEVETIRACETAM 500MG TABLET PO SCH ×2 (09:02→21:23)
[2017-01-11] MEDS: ENOXAPARIN 30MG/0.3ML SYR SUBCUT SCH (09:02)
[2017-01-11] MEDS: ASPIRIN 81MG EC TABLET PO SCH (09:02)
[2017-01-11 09:13] LABS: BG BASE EXCESS -1.5 mmol/L (-2.0-2.0); BG CARBOXYHEMOGLOBIN 0.2 % (0.5-1.5); BG DEOXYHEMOGLOBIN 2.6 % (0.0-5.0); BG FRACTION INSPIRED OXYGEN 40; BG HCO3 ACT 22.6 mmol/L (22.0-26.0); BG METHEMOGLOBIN 0.4 % (0.0-1.5); BG OXYGEN SATURATION 97.4 % (92.0-98.5); BG OXYHEMOGLOBIN 96.8 % (94.0-97.0); BG PCO2 35.8 mmHg (35.0-45.0); BG PH 7.419 (7.350-7.450); BG PRESSURE SUPPORT 8; BG SAMPLE SITE RIGHT BRACHIAL; BG TIDAL VOLUME(mL) 500 mL; BG TOTAL HEMOGLOBIN 10.2 g/dL (12.0-18.0); BG VENT MODE VENT - SIMV; BG VENT RATE 12 set
[2017-01-11] MEDS: QUETIAPINE FUMARATE 50MG TABLET PO SCH (17:37)
[2017-01-11] MEDS: MIRTAZAPINE 15MG TABLET PO SCH (17:37)
[2017-01-12] VITALS (44 sets, daily range): BP systolic 105–148; BP diastolic 38–74
[2017-01-12] MEDS: IPRATROPIUM/ALBUTEROL 0.5-3(2.5)MG/3ML NEB HHN SCH ×6 (00:09→20:24)
[2017-01-12] MEDS: DILTIAZEM HCL 30MG TABLET NG SCH ×3 (01:06→17:01)
[2017-01-12] MEDS: PIPERACILLIN/TAZ 2.25G PREMIX 50 ML IV SCH ×3 (01:06→17:01)
[2017-01-12 04:54] LABS: HEMATOCRIT. 25.1 % (42.0-52.0); HEMOGLOBIN. 8.4 g/dL (14.0-18.0); MEAN CORPUSCULAR HEMOGLOBIN 29.7 pg (28.0-32.0); MEAN CORPUSCULAR VOLUME 88.1 fL (80.0-94.0); MEAN PLATELET VOLUME 9.9 fl (7.4-10.4); PLATELET 149 x1000/uL (130-400); RED BLOOD CELL COUNT 2.85 mill/uL (4.7-6.1); RED CELL DISTRIBUTION WIDTH 14.8 % (11.6-14.6)
[2017-01-12] MEDS: METOCLOPRAMIDE HCL 5MG TABLET PO SCH (06:06)
[2017-01-12] MEDS: FERROUS SULFATE 325MG TABLET PO SCH ×2 (06:06→16:49)
[2017-01-12] MEDS: PANTOPRAZOLE SODIUM 40 MG/VIAL IV SCH ×2 (08:19→21:15)
[2017-01-12] MEDS: ENOXAPARIN 30MG/0.3ML SYR SUBCUT SCH (08:20)
[2017-01-12] MEDS: ASPIRIN 81MG EC TABLET PO SCH (08:22)
[2017-01-12] MEDS: FINASTERIDE 5MG TABLET PO SCH (08:22)
[2017-01-12] MEDS: AMIODARONE HCL 200 MG TABLET NG SCH ×2 (08:22→16:50)
[2017-01-12] MEDS: LEVETIRACETAM 500MG TABLET PO SCH ×2 (08:22→21:15)
[2017-01-12] MEDS: MICAFUNGIN 100 MG in SODIUM CHLORIDE 0.9% 100 ML IV SCH (08:23)
[2017-01-12] MEDS ORDERED: POTASSIUM CHLORIDE 20MEQ TABLET SR PO NR (08:30)
[2017-01-12] MEDS ORDERED: POTASSIUM CHLORIDE 20MEQ/PACKET PO NR (08:45)
[2017-01-12] MEDS ORDERED: METOCLOPRAMIDE HCL 10MG/2ML VIAL IV SCH (08:45)
[2017-01-12 09:53] LABS: PLATELET ESTIMATE NORMAL
[2017-01-12] MEDS: METOCLOPRAMIDE HCL 5MG TABLET NG SCH ×2 (14:06→21:15)
[2017-01-12] MEDS: QUETIAPINE FUMARATE 50MG TABLET PO SCH (16:50)
[2017-01-12] MEDS: MIRTAZAPINE 15MG TABLET PO SCH (16:50)
[2017-01-13] VITALS (53 sets, daily range): BP systolic 84–149; BP diastolic 40–62
[2017-01-13] MEDS: IPRATROPIUM/ALBUTEROL 0.5-3(2.5)MG/3ML NEB HHN SCH ×7 (00:59→23:52)
[2017-01-13] MEDS: PIPERACILLIN/TAZ 2.25G PREMIX 50 ML IV SCH ×3 (01:15→17:27)
[2017-01-13] MEDS: DILTIAZEM HCL 30MG TABLET NG SCH ×3 (01:15→17:27)
[2017-01-13] MEDS: METOCLOPRAMIDE HCL 5MG TABLET NG SCH ×3 (06:02→21:26)
[2017-01-13] MEDS: FERROUS SULFATE 325MG TABLET PO SCH ×2 (06:02→17:28)
[2017-01-13 06:08] LABS: PHOSPHORUS 7.2 mg/dL (2.5-4.9)
[2017-01-13 07:27] LABS: HEMATOCRIT. 24.3 % (42.0-52.0); HEMOGLOBIN. 8.3 g/dL (14.0-18.0); MEAN CORPUSCULAR HEMOGLOBIN 30.1 pg (28.0-32.0); MEAN CORPUSCULAR VOLUME 87.9 fL (80.0-94.0); MEAN PLATELET VOLUME 8.6 fl (7.4-10.4); PLATELET 170 x1000/uL (130-400); RED BLOOD CELL COUNT 2.77 mill/uL (4.7-6.1); RED CELL DISTRIBUTION WIDTH 15.1 % (11.6-14.6)
[2017-01-13] MEDS: MICAFUNGIN 100 MG in SODIUM CHLORIDE 0.9% 100 ML IV SCH (09:25)
[2017-01-13] MEDS: FINASTERIDE 5MG TABLET PO SCH (09:26)
[2017-01-13] MEDS: LEVETIRACETAM 500MG TABLET PO SCH ×2 (09:26→21:26)
[2017-01-13] MEDS: AMIODARONE HCL 200 MG TABLET NG SCH ×2 (09:26→17:28)
[2017-01-13] MEDS: ASPIRIN 81MG TABLET NG SCH (09:26)
[2017-01-13] MEDS: ENOXAPARIN 30MG/0.3ML SYR SUBCUT SCH (09:27)
[2017-01-13] MEDS: PANTOPRAZOLE SODIUM 40 MG/VIAL IV SCH ×2 (09:27→21:26)
[2017-01-13 10:18] LABS: PLATELET ESTIMATE NORMAL
[2017-01-13] MEDS: LANTHANUM CARBONATE 500MG CHEW TABLET PO SCH ×2 (12:20→17:28)
[2017-01-13] MEDS: NOREPINEPHRINE 16 MG in DEXT 5% WATER 234 ML IV PRN (13:18)
[2017-01-13] MEDS ORDERED: HEPARIN SODIUM 1,000 UNIT/1ML VIAL IV NR (13:30)
[2017-01-13] MEDS ORDERED: VANCOMYCIN 750 MG PREMIX 150 ML IV SCH (14:00)
[2017-01-13 16:07] LABS: BG BASE EXCESS 2.6 mmol/L (-2.0-2.0); BG CARBOXYHEMOGLOBIN 0.3 % (0.5-1.5); BG DEOXYHEMOGLOBIN 2.4 % (0.0-5.0); BG FRACTION INSPIRED OXYGEN 40; BG METHEMOGLOBIN 0.3 % (0.0-1.5); BG OXYGEN SATURATION 97.6 % (92.0-98.5); BG PCO2 30.5 mmHg (35.0-45.0); BG PH 7.532 (7.350-7.450); BG PO2 111.8 mmHg (75.0-100.0); BG PRESSURE SUPPORT 8; BG SAMPLE SITE RIGHT BRACHIAL; BG TOTAL HEMOGLOBIN 9.4 g/dL (12.0-18.0); BG VENT MODE VENT - CPAP
[2017-01-13] MEDS: QUETIAPINE FUMARATE 50MG TABLET PO SCH (17:27)
[2017-01-13] MEDS: MIRTAZAPINE 15MG TABLET PO SCH (17:28)
[2017-01-13] MEDS ORDERED: EPOETIN ALFA 4000UNITS/ML VIAL SUBCUT SCH (21:00)
[2017-01-13] MEDS: EPOETIN ALFA 4000UNITS/ML VIAL SUBCUT SCH (22:12)
[2017-01-14] VITALS (36 sets, daily range): BP systolic 114–156; BP diastolic 46–78
[2017-01-14] MEDS: PIPERACILLIN/TAZ 2.25G PREMIX 50 ML IV SCH ×3 (01:51→17:53)
[2017-01-14] MEDS: DILTIAZEM HCL 30MG TABLET NG SCH ×3 (01:51→17:53)
[2017-01-14] MEDS: IPRATROPIUM/ALBUTEROL 0.5-3(2.5)MG/3ML NEB HHN SCH ×5 (04:04→20:39)
[2017-01-14] MEDS: METOCLOPRAMIDE HCL 5MG TABLET NG SCH ×3 (05:40→20:32)
[2017-01-14 05:58] LABS: BASOPHILS % 0.3 % (0.0-2.0); EOSINOPHILS % 1.4 % (0.0-5.0); HEMATOCRIT. 25.3 % (42.0-52.0); HEMOGLOBIN. 8.4 g/dL (14.0-18.0); LYMPHOCYTES % 8.8 % (20.0-50.0); MEAN CORPUSCULAR HEMOGLOBIN 29.5 pg (28.0-32.0); MEAN CORPUSCULAR VOLUME 88.3 fL (80.0-94.0); MEAN PLATELET VOLUME 9.5 fl (7.4-10.4); MONOCYTES % 6.4 % (2.0-8.0); NEUTROPHILS % 83.1 % (40.0-76.0); PLATELET 196 x1000/uL (130-400); RED BLOOD CELL COUNT 2.86 mill/uL (4.7-6.1); RED CELL DISTRIBUTION WIDTH 15.3 % (11.6-14.6)
[2017-01-14] MEDS: FERROUS SULFATE 325MG TABLET PO SCH ×2 (06:03→17:52)
[2017-01-14] MEDS: LANTHANUM CARBONATE 500MG CHEW TABLET PO SCH ×3 (06:03→17:52)
[2017-01-14] MEDS ORDERED: POTASSIUM CHLORIDE 20MEQ/PACKET NG SCH (08:30)
[2017-01-14] MEDS: MICAFUNGIN 100 MG in SODIUM CHLORIDE 0.9% 100 ML IV SCH (09:19)
[2017-01-14] MEDS: PANTOPRAZOLE SODIUM 40 MG/VIAL IV SCH ×2 (09:20→20:32)
[2017-01-14] MEDS: ENOXAPARIN 30MG/0.3ML SYR SUBCUT SCH (09:20)
[2017-01-14] MEDS: LEVETIRACETAM 500MG TABLET PO SCH ×2 (09:21→20:32)
[2017-01-14] MEDS: ASPIRIN 81MG TABLET NG SCH (09:21)
[2017-01-14] MEDS: FINASTERIDE 5MG TABLET PO SCH (09:22)
[2017-01-14] MEDS: AMIODARONE HCL 200 MG TABLET NG SCH ×2 (09:22→17:52)
[2017-01-14] MEDS: HYDROCODONE/ACETAMINOPHEN 5/325MG TABLET PO PRN ×2 (09:22→23:26)
[2017-01-14] MEDS: QUETIAPINE FUMARATE 50MG TABLET PO SCH (17:52)
[2017-01-14] MEDS: MIRTAZAPINE 15MG TABLET PO SCH (17:52)
[2017-01-15] VITALS (28 sets, daily range): BP systolic 103–167; BP diastolic 43–72
[2017-01-15] MEDS: IPRATROPIUM/ALBUTEROL 0.5-3(2.5)MG/3ML NEB HHN SCH ×6 (00:15→20:11)
[2017-01-15] MEDS: PIPERACILLIN/TAZ 2.25G PREMIX 50 ML IV SCH ×3 (01:43→17:55)
[2017-01-15] MEDS: DILTIAZEM HCL 30MG TABLET NG SCH ×3 (01:43→17:54)
[2017-01-15] MEDS: FERROUS SULFATE 325MG TABLET PO SCH ×2 (06:06→17:00)
[2017-01-15] MEDS: LANTHANUM CARBONATE 500MG CHEW TABLET PO SCH ×3 (06:06→17:00)
[2017-01-15] MEDS: METOCLOPRAMIDE HCL 5MG TABLET NG SCH ×3 (06:06→22:27)
[2017-01-15 06:10] LABS: INR 1.1; PARTIAL THROMBOPLASTIN TIME 25.3 sec (23.4-31.0)
[2017-01-15 06:16] LABS: BASOPHILS % 0.5 % (0.0-2.0); EOSINOPHILS % 1.7 % (0.0-5.0); HEMATOCRIT. 24.6 % (42.0-52.0); HEMOGLOBIN. 8.2 g/dL (14.0-18.0); LYMPHOCYTES % 10.7 % (20.0-50.0); MEAN CORPUSCULAR HEMOGLOBIN 29.5 pg (28.0-32.0); MEAN CORPUSCULAR VOLUME 88.6 fL (80.0-94.0); MEAN PLATELET VOLUME 9.2 fl (7.4-10.4); MONOCYTES % 6.7 % (2.0-8.0); NEUTROPHILS % 80.4 % (40.0-76.0); PLATELET 199 x1000/uL (130-400); RED BLOOD CELL COUNT 2.77 mill/uL (4.7-6.1); RED CELL DISTRIBUTION WIDTH 15.4 % (11.6-14.6)
[2017-01-15 06:25] LABS: CARBON DIOXIDE 22 mEq/L (21-32); CHLORIDE 98 mEq/L (98-107)
[2017-01-15 06:32] LABS: PREALBUMIN 16.1 mg/dL (20.0-40.0)
[2017-01-15] MEDS: LEVETIRACETAM 500MG TABLET PO SCH ×2 (08:38→20:40)
[2017-01-15] MEDS: ASPIRIN 81MG TABLET NG SCH (09:00)
[2017-01-15] MEDS ORDERED: HEPARIN SODIUM 1,000 UNIT/1ML VIAL IV SCH (09:15)
[2017-01-15] MEDS: AMIODARONE HCL 200 MG TABLET NG SCH ×2 (11:20→17:00)
[2017-01-15] MEDS: FINASTERIDE 5MG TABLET PO SCH (11:20)
[2017-01-15] MEDS: PANTOPRAZOLE SODIUM 40 MG/VIAL IV SCH ×2 (11:20→22:16)
[2017-01-15] MEDS: MICAFUNGIN 100 MG in SODIUM CHLORIDE 0.9% 100 ML IV SCH (11:23)
[2017-01-15] MEDS ORDERED: SIMETHICONE 40 MG/0.6 ML 30ML ONE ×2 (13:45→16:58)
[2017-01-15] MEDS ORDERED: SODIUM CHLORIDE 0.9% 10ML VIAL ONE (13:45)
[2017-01-15] MEDS ORDERED: VANCOMYCIN 750 MG PREMIX 150 ML IV NR (14:00)
[2017-01-15] MEDS ORDERED: FENTANYL CITRATE/PF 50MCG/ML 2ML VIAL ONE (16:58)
[2017-01-15] MEDS ORDERED: MIDAZOLAM HCL 5 MG/5 ML VIAL ONE (16:58)
[2017-01-15] MEDS: QUETIAPINE FUMARATE 50MG TABLET PO SCH (17:00)
[2017-01-15] MEDS: MIRTAZAPINE 15MG TABLET PO SCH (17:00)
[2017-01-15] MEDS ORDERED: FENTANYL CITRATE/PF 50MCG/ML 2ML VIAL IV PRN (17:26)
[2017-01-15] MEDS ORDERED: MIDAZOLAM HCL 5 MG/5 ML VIAL IV PRN (17:26)
[2017-01-15] MEDS: EPOETIN ALFA 4000UNITS/ML VIAL SUBCUT SCH (22:45)
[2017-01-16] VITALS (23 sets, daily range): BP systolic 125–179; BP diastolic 48–83
[2017-01-16] MEDS: IPRATROPIUM/ALBUTEROL 0.5-3(2.5)MG/3ML NEB HHN SCH ×8 (00:33→23:57)
[2017-01-16] MEDS: DILTIAZEM HCL 30MG TABLET NG SCH ×3 (02:30→17:55)
[2017-01-16] MEDS: PIPERACILLIN/TAZ 2.25G PREMIX 50 ML IV SCH ×2 (02:30→10:53)
[2017-01-16] MEDS: LANTHANUM CARBONATE 500MG CHEW TABLET PO SCH ×4 (06:15→17:40)
[2017-01-16] MEDS: METOCLOPRAMIDE HCL 5MG TABLET NG SCH ×2 (06:15→13:04)
[2017-01-16] MEDS: FERROUS SULFATE 325MG TABLET PO SCH ×3 (06:15→17:40)
[2017-01-16 06:18] LABS: BASOPHILS % 0.4 % (0.0-2.0); EOSINOPHILS % 1.2 % (0.0-5.0); HEMATOCRIT. 28.2 % (42.0-52.0); HEMOGLOBIN. 9.5 g/dL (14.0-18.0); LYMPHOCYTES % 11.5 % (20.0-50.0); MEAN CORPUSCULAR HEMOGLOBIN 29.8 pg (28.0-32.0); MEAN CORPUSCULAR VOLUME 88.7 fL (80.0-94.0); MEAN PLATELET VOLUME 9.2 fl (7.4-10.4); MONOCYTES % 9.3 % (2.0-8.0); NEUTROPHILS % 77.6 % (40.0-76.0); PLATELET 263 x1000/uL (130-400); RED BLOOD CELL COUNT 3.17 mill/uL (4.7-6.1); RED CELL DISTRIBUTION WIDTH 14.9 % (11.6-14.6)
[2017-01-16] MEDS: ASPIRIN 81MG TABLET NG SCH (09:28)
[2017-01-16] MEDS: FINASTERIDE 5MG TABLET PO SCH (09:28)
[2017-01-16] MEDS: AMIODARONE HCL 200 MG TABLET NG SCH ×2 (09:28→16:38)
[2017-01-16] MEDS: PANTOPRAZOLE SODIUM 40 MG/VIAL IV SCH ×2 (09:28→21:32)
[2017-01-16] MEDS: LEVETIRACETAM 500MG TABLET PO SCH ×2 (09:28→21:58)
[2017-01-16] MEDS: ACETAMINOPHEN 650MG/20.3ML UDC GT PRN (11:45)
[2017-01-16] MEDS ORDERED: GUAIFENESIN 200MG/10ML SUGAR FREE UDC PO PRN (13:00)
[2017-01-16] MEDS: MIRTAZAPINE 15MG TABLET PO SCH (16:32)
[2017-01-16] MEDS: QUETIAPINE FUMARATE 50MG TABLET PO SCH (16:33)
[2017-01-16] MEDS: CLONIDINE 0.1MG TABLET GT PRN (16:35)
[2017-01-16] MEDS: ENOXAPARIN 30MG/0.3ML SYR SUBCUT SCH (16:36)
[2017-01-16] MEDS: DEXT 5%/0.45% NACL 1000ML 1,000 ML IV SCH (22:42)
[2017-01-16] MEDS: METOCLOPRAMIDE HCL 10MG/2ML VIAL IV SCH (22:43)
[2017-01-17] VITALS: BP 160/57
[2017-01-17] MEDS: ERYTHROMYCIN LACTOBIONATE 1,000 MG in SODIUM CHLORIDE 0.9% 250 ML IV SCH ×2 (01:26→14:23)
[2017-01-17] MEDS: DILTIAZEM HCL 30MG TABLET NG SCH ×3 (01:51→17:05)
[2017-01-17 04:00] VITALS: BP 165/58
[2017-01-17] MEDS: IPRATROPIUM/ALBUTEROL 0.5-3(2.5)MG/3ML NEB HHN SCH ×6 (04:52→23:28)
[2017-01-17] MEDS: CLONIDINE 0.1MG TABLET GT PRN (04:59)
[2017-01-17] MEDS: METOCLOPRAMIDE HCL 10MG/2ML VIAL IV SCH ×4 (05:20→23:15)
[2017-01-17 05:49] LABS: BASOPHILS % 0.9 % (0.0-2.0); EOSINOPHILS % 1.4 % (0.0-5.0); HEMATOCRIT. 26.7 % (42.0-52.0); HEMOGLOBIN. 8.8 g/dL (14.0-18.0); LYMPHOCYTES % 11.2 % (20.0-50.0); MEAN CORPUSCULAR HEMOGLOBIN 29.2 pg (28.0-32.0); MEAN CORPUSCULAR VOLUME 88.1 fL (80.0-94.0); MEAN PLATELET VOLUME 8.9 fl (7.4-10.4); MONOCYTES % 9.3 % (2.0-8.0); NEUTROPHILS % 77.2 % (40.0-76.0); PLATELET 279 x1000/uL (130-400); RED BLOOD CELL COUNT 3.03 mill/uL (4.7-6.1); RED CELL DISTRIBUTION WIDTH 15.3 % (11.6-14.6)
[2017-01-17 08:00] VITALS: BP 166/84
[2017-01-17] MEDS ORDERED: HEPARIN SODIUM 1,000 UNIT/1ML VIAL IV SCH (09:15)
[2017-01-17] MEDS: ASPIRIN 81MG TABLET NG SCH (10:12)
[2017-01-17] MEDS: AMIODARONE HCL 200 MG TABLET NG SCH ×2 (10:12→16:34)
[2017-01-17] MEDS: LEVETIRACETAM 500MG TABLET PO SCH ×2 (10:13→21:11)
[2017-01-17] MEDS: FINASTERIDE 5MG TABLET PO SCH (10:13)
[2017-01-17] MEDS: FERROUS SULFATE 325MG TABLET PO SCH ×2 (10:13→17:05)
[2017-01-17 12:00] VITALS: BP 138/57
[2017-01-17] MEDS: LANTHANUM CARBONATE 500MG CHEW TABLET PO SCH ×2 (12:14→17:05)
[2017-01-17] MEDS: QUETIAPINE FUMARATE 50MG TABLET PO SCH (16:34)
[2017-01-17] MEDS: MIRTAZAPINE 15MG TABLET PO SCH (16:34)
[2017-01-17] MEDS: ENOXAPARIN 30MG/0.3ML SYR SUBCUT SCH (16:34)
[2017-01-17] MEDS: DEXT 5%/0.45% NACL 1000ML 1,000 ML IV SCH (17:05)
[2017-01-17 20:00] VITALS: BP 127/45
[2017-01-17] MEDS: EPOETIN ALFA 4000UNITS/ML VIAL SUBCUT SCH (21:12)
[2017-01-18] VITALS: BP 111/42
[2017-01-18] MEDS: ERYTHROMYCIN LACTOBIONATE 1,000 MG in SODIUM CHLORIDE 0.9% 250 ML IV SCH (02:00)
[2017-01-18] MEDS: DILTIAZEM HCL 30MG TABLET NG SCH ×3 (02:00→18:15)
[2017-01-18] MEDS: IPRATROPIUM/ALBUTEROL 0.5-3(2.5)MG/3ML NEB HHN SCH ×5 (03:49→21:54)
[2017-01-18 04:00] VITALS: BP 127/49
[2017-01-18] MEDS: METOCLOPRAMIDE HCL 10MG/2ML VIAL IV SCH ×3 (05:22→18:15)
[2017-01-18 08:00] VITALS: BP 160/60
[2017-01-18] MEDS: LANTHANUM CARBONATE 500MG CHEW TABLET PO SCH ×3 (09:17→18:15)
[2017-01-18] MEDS: AMIODARONE HCL 200 MG TABLET NG SCH ×2 (09:17→18:15)
[2017-01-18] MEDS: ASPIRIN 81MG TABLET NG SCH (09:17)
[2017-01-18] MEDS: FERROUS SULFATE 325MG TABLET PO SCH ×2 (09:18→18:15)
[2017-01-18] MEDS: FAMOTIDINE 20MG/2ML VIAL IV SCH (09:18)
[2017-01-18] MEDS: FINASTERIDE 5MG TABLET PO SCH (09:18)
[2017-01-18] MEDS: LEVETIRACETAM 500MG TABLET PO SCH ×2 (09:18→21:31)
[2017-01-18 09:20] LABS: BASOPHILS % 0.6 % (0.0-2.0); EOSINOPHILS % 1.6 % (0.0-5.0); HEMATOCRIT. 24.6 % (42.0-52.0); HEMOGLOBIN. 8.4 g/dL (14.0-18.0); LYMPHOCYTES % 18.2 % (20.0-50.0); MEAN CORPUSCULAR HEMOGLOBIN 30.1 pg (28.0-32.0); MEAN CORPUSCULAR VOLUME 88.1 fL (80.0-94.0); MEAN PLATELET VOLUME 8.7 fl (7.4-10.4); MONOCYTES % 8.9 % (2.0-8.0); NEUTROPHILS % 70.7 % (40.0-76.0); PLATELET 263 x1000/uL (130-400); RED BLOOD CELL COUNT 2.79 mill/uL (4.7-6.1); RED CELL DISTRIBUTION WIDTH 15.2 % (11.6-14.6)
[2017-01-18] MEDS: CLONIDINE 0.1MG TABLET GT PRN (09:20)
[2017-01-18 09:48] LABS: PHOSPHORUS 3.9 mg/dL (2.5-4.9)
[2017-01-18 12:00] VITALS: BP 142/58
[2017-01-18 14:01] LABS: HEPATITIS B SURFACE ANTIGEN NEGATIVE
[2017-01-18 16:00] VITALS: BP 128/93
[2017-01-18] MEDS: ENOXAPARIN 30MG/0.3ML SYR SUBCUT SCH (18:14)
[2017-01-18] MEDS: MIRTAZAPINE 15MG TABLET PO SCH (18:15)
[2017-01-18] MEDS: QUETIAPINE FUMARATE 50MG TABLET PO SCH (18:15)
[2017-01-18 20:00] VITALS: BP 161/50
[2017-01-19] VITALS: BP 165/61
[2017-01-19] MEDS: METOCLOPRAMIDE HCL 10MG/2ML VIAL IV SCH ×5 (00:08→23:58)
[2017-01-19] MEDS: IPRATROPIUM/ALBUTEROL 0.5-3(2.5)MG/3ML NEB HHN SCH ×6 (00:36→20:01)
[2017-01-19] MEDS: DILTIAZEM HCL 30MG TABLET NG SCH ×3 (03:13→16:50)
[2017-01-19 04:00] VITALS: BP_SYST 158; BP_SYST 159; BP_DIAS 60
[2017-01-19 06:51] LABS: BASOPHILS % 0.7 % (0.0-2.0); EOSINOPHILS % 1.3 % (0.0-5.0); HEMATOCRIT. 25.6 % (42.0-52.0); HEMOGLOBIN. 8.7 g/dL (14.0-18.0); LYMPHOCYTES % 14.7 % (20.0-50.0); MEAN CORPUSCULAR HEMOGLOBIN 29.9 pg (28.0-32.0); MEAN PLATELET VOLUME 8.8 fl (7.4-10.4); NEUTROPHILS % 74.3 % (40.0-76.0); PLATELET 294 x1000/uL (130-400); RED CELL DISTRIBUTION WIDTH 15.1 % (11.6-14.6)
[2017-01-19 08:00] VITALS: BP 172/64
[2017-01-19] MEDS: ACETAMINOPHEN 650MG/20.3ML UDC GT PRN (09:12)
[2017-01-19] MEDS: LEVETIRACETAM 500MG TABLET PO SCH ×2 (09:12→21:05)
[2017-01-19] MEDS: FERROUS SULFATE 325MG TABLET PO SCH ×2 (09:13→16:50)
[2017-01-19] MEDS: ASPIRIN 81MG TABLET NG SCH (09:13)
[2017-01-19] MEDS: AMIODARONE HCL 200 MG TABLET NG SCH ×2 (09:13→16:50)
[2017-01-19] MEDS: LANTHANUM CARBONATE 500MG CHEW TABLET PO SCH ×3 (09:13→16:52)
[2017-01-19] MEDS: CLONIDINE 0.1MG TABLET GT PRN (09:13)
[2017-01-19] MEDS: FAMOTIDINE 20MG/2ML VIAL IV SCH (09:14)
[2017-01-19] MEDS: FINASTERIDE 5MG TABLET PO SCH (09:16)
[2017-01-19] MEDS ORDERED: IPRATROPIUM/ALBUTEROL 0.5-3(2.5)MG/3ML NEB HHN SCH (16:00)
[2017-01-19 16:49] VITALS: BP_SYST 119; BP_SYST 144; BP_DIAS 55; BP_DIAS 72
[2017-01-19] MEDS: ENOXAPARIN 30MG/0.3ML SYR SUBCUT SCH (16:50)
[2017-01-19] MEDS: MIRTAZAPINE 15MG TABLET PO SCH (16:50)
[2017-01-19] MEDS: QUETIAPINE FUMARATE 50MG TABLET PO SCH (16:50)
[2017-01-19 20:00] VITALS: BP 149/59
[2017-01-19 20:33] VITALS: BP_SYST 140; BP_SYST 149; BP_DIAS 44; BP_DIAS 59
[2017-01-20] VITALS (40 sets, daily range): BP systolic 73–145; BP diastolic 35–92
[2017-01-20] MEDS: IPRATROPIUM/ALBUTEROL 0.5-3(2.5)MG/3ML NEB HHN SCH ×6 (00:24→20:06)
[2017-01-20] MEDS: DILTIAZEM HCL 30MG TABLET NG SCH ×3 (02:00→17:31)
[2017-01-20] MEDS: METOCLOPRAMIDE HCL 10MG/2ML VIAL IV SCH ×3 (05:27→17:45)
[2017-01-20] MEDS ORDERED: EPINEPHRINE 0.1MG/ML (1:10,000) 10ML SYR ONE (06:00)
[2017-01-20] MEDS ORDERED: ATROPINE SULFATE 1MG/10ML SYR ONE (06:00)
[2017-01-20 06:08] LABS: BG BASE EXCESS -8.3 mmol/L (-2.0-2.0); BG CARBOXYHEMOGLOBIN 0.3 % (0.5-1.5); BG DEOXYHEMOGLOBIN 1.4 % (0.0-5.0); BG FRACTION INSPIRED OXYGEN 100; BG HCO3 ACT 21.6 mmol/L (22.0-26.0); BG METHEMOGLOBIN 0.3 % (0.0-1.5); BG OXYGEN SATURATION 98.6 % (92.0-98.5); BG PCO2 69.9 mmHg (35.0-45.0); BG PH 7.108 (7.350-7.450); BG PO2 197.5 mmHg (75.0-100.0); BG SAMPLE SITE LEFT RADIAL; BG TOTAL HEMOGLOBIN 10.2 g/dL (12.0-18.0); BG VENT MODE MASK - NRB
[2017-01-20] MEDS ORDERED: NOREPINEPHRINE 16 MG in DEXT 5% WATER 234 ML IV PRN (07:30)
[2017-01-20 08:27] LABS: BASOPHILS % 0.7 % (0.0-2.0); HEMOGLOBIN. 8.9 g/dL (14.0-18.0); LYMPHOCYTES % 9.6 % (20.0-50.0); MEAN CORPUSCULAR HEMOGLOBIN 29.3 pg (28.0-32.0); MEAN CORPUSCULAR VOLUME 89.3 fL (80.0-94.0); MEAN PLATELET VOLUME 8.5 fl (7.4-10.4); NEUTROPHILS % 79.7 % (40.0-76.0); PLATELET 397 x1000/uL (130-400); RED BLOOD CELL COUNT 3.03 mill/uL (4.7-6.1); RED CELL DISTRIBUTION WIDTH 15.9 % (11.6-14.6)
[2017-01-20 09:08] LABS: BG BASE EXCESS -7.5 mmol/L (-2.0-2.0); BG CARBOXYHEMOGLOBIN 0.1 % (0.5-1.5); BG DEOXYHEMOGLOBIN 1.8 % (0.0-5.0); BG FRACTION INSPIRED OXYGEN 60; BG METHEMOGLOBIN 0.8 % (0.0-1.5); BG OXYGEN SATURATION 98.2 % (92.0-98.5); BG OXYHEMOGLOBIN 97.3 % (94.0-97.0); BG PCO2 42.6 mmHg (35.0-45.0); BG PH 7.268 (7.350-7.450); BG PO2 180.5 mmHg (75.0-100.0); BG SAMPLE SITE RIGHT RADIAL; BG TIDAL VOLUME(mL) 600 mL; BG TOTAL HEMOGLOBIN 9.9 g/dL (12.0-18.0); BG VENT MODE VENT - A/C; BG VENT RATE 16 set
[2017-01-20] MEDS: FAMOTIDINE 20MG/2ML VIAL IV SCH (10:03)
[2017-01-20] MEDS: FINASTERIDE 5MG TABLET PO SCH (10:03)
[2017-01-20] MEDS: AMIODARONE HCL 200 MG TABLET NG SCH ×2 (10:03→17:45)
[2017-01-20] MEDS: LEVETIRACETAM 500MG TABLET PO SCH ×2 (10:03→20:24)
[2017-01-20] MEDS: ASPIRIN 81MG TABLET NG SCH (10:03)
[2017-01-20] MEDS ORDERED: SODIUM POLYSTYRENE SULFONATE 15 G/60 ML BOT PO NR (12:00)
[2017-01-20] MEDS: ACETYLCYSTEINE 100MG/ML 10% VIAL 4ML INH SCH (13:01)
[2017-01-20] MEDS: LANTHANUM CARBONATE 500MG CHEW TABLET PO SCH ×2 (13:09→17:45)
[2017-01-20] MEDS: QUETIAPINE FUMARATE 50MG TABLET PO SCH (17:45)
[2017-01-20] MEDS: FERROUS SULFATE 325MG TABLET PO SCH (17:45)
[2017-01-20] MEDS: MIRTAZAPINE 15MG TABLET PO SCH (17:45)
[2017-01-20] MEDS: ENOXAPARIN 30MG/0.3ML SYR SUBCUT SCH (17:46)
[2017-01-21] VITALS (57 sets, daily range): BP systolic 83–158; BP diastolic 46–107
[2017-01-21] MEDS: IPRATROPIUM/ALBUTEROL 0.5-3(2.5)MG/3ML NEB HHN SCH ×6 (00:09→20:22)
[2017-01-21] MEDS: ACETYLCYSTEINE 100MG/ML 10% VIAL 4ML INH SCH ×3 (00:09→20:23)
[2017-01-21] MEDS: DILTIAZEM HCL 30MG TABLET NG SCH ×3 (02:40→17:33)
[2017-01-21] MEDS: FERROUS SULFATE 325MG TABLET PO SCH ×2 (06:13→17:32)
[2017-01-21] MEDS: METOCLOPRAMIDE HCL 10MG/2ML VIAL IV SCH ×4 (06:13→17:32)
[2017-01-21] MEDS: LANTHANUM CARBONATE 500MG CHEW TABLET PO SCH ×3 (06:14→17:32)
[2017-01-21 06:55] LABS: PHOSPHORUS 6.5 mg/dL (2.5-4.9)
[2017-01-21] MEDS: AMIODARONE HCL 200 MG TABLET NG SCH ×2 (08:59→17:32)
[2017-01-21] MEDS: FINASTERIDE 5MG TABLET PO SCH (08:59)
[2017-01-21] MEDS: FAMOTIDINE 20MG/2ML VIAL IV SCH (08:59)
[2017-01-21] MEDS: LEVETIRACETAM 500MG TABLET PO SCH ×2 (08:59→20:59)
[2017-01-21] MEDS: ASPIRIN 81MG TABLET NG SCH (08:59)
[2017-01-21 09:09] LABS: BASOPHILS % 0.7 % (0.0-2.0); EOSINOPHILS % 2.7 % (0.0-5.0); HEMOGLOBIN. 9.1 g/dL (14.0-18.0); LYMPHOCYTES % 24.4 % (20.0-50.0); MEAN CORPUSCULAR HEMOGLOBIN 29.7 pg (28.0-32.0); MEAN CORPUSCULAR VOLUME 88.2 fL (80.0-94.0); MEAN PLATELET VOLUME 8.4 fl (7.4-10.4); MONOCYTES % 10.6 % (2.0-8.0); NEUTROPHILS % 61.6 % (40.0-76.0); PLATELET 353 x1000/uL (130-400); RED BLOOD CELL COUNT 3.06 mill/uL (4.7-6.1); RED CELL DISTRIBUTION WIDTH 15.9 % (11.6-14.6)
[2017-01-21] MEDS ORDERED: HEPARIN SODIUM 1,000 UNIT/1ML VIAL IV NR (09:15)
[2017-01-21 11:53] LABS: INR 1.1; PARTIAL THROMBOPLASTIN TIME 24.9 sec (23.4-31.0); PROTHROMBIN TIME 11.4 sec (9.4-11.6)
[2017-01-21 12:33] LABS: BG BASE EXCESS 3.2 mmol/L (-2.0-2.0); BG CARBOXYHEMOGLOBIN 0.3 % (0.5-1.5); BG DEOXYHEMOGLOBIN 3.1 % (0.0-5.0); BG FRACTION INSPIRED OXYGEN 40; BG HCO3 ACT 26.2 mmol/L (22.0-26.0); BG METHEMOGLOBIN 0.1 % (0.0-1.5); BG OXYGEN SATURATION 96.9 % (92.0-98.5); BG OXYHEMOGLOBIN 96.5 % (94.0-97.0); BG PCO2 33.8 mmHg (35.0-45.0); BG PH 7.507 (7.350-7.450); BG PO2 87.8 mmHg (75.0-100.0); BG SAMPLE SITE RIGHT BRACHIAL; BG TIDAL VOLUME(mL) 500 mL; BG TOTAL HEMOGLOBIN 10.1 g/dL (12.0-18.0); BG VENT MODE VENT - A/C; BG VENT RATE 16 set
[2017-01-21] MEDS ORDERED: ACETYLCYSTEINE 100MG/ML 10% VIAL 4ML INH SCH (14:00)
[2017-01-21] MEDS: ENOXAPARIN 30MG/0.3ML SYR SUBCUT SCH (16:00)
[2017-01-21] MEDS: QUETIAPINE FUMARATE 50MG TABLET PO SCH (17:32)
[2017-01-21] MEDS: MIRTAZAPINE 15MG TABLET PO SCH (17:32)
[2017-01-22] VITALS (48 sets, daily range): BP systolic 109–170; BP diastolic 51–105
[2017-01-22] MEDS: IPRATROPIUM/ALBUTEROL 0.5-3(2.5)MG/3ML NEB HHN SCH ×6 (00:01→20:41)
[2017-01-22] MEDS: METOCLOPRAMIDE HCL 10MG/2ML VIAL IV SCH ×5 (00:01→23:58)
[2017-01-22] MEDS: ACETYLCYSTEINE 100MG/ML 10% VIAL 4ML INH SCH ×3 (00:47→12:31)
[2017-01-22] MEDS: DILTIAZEM HCL 30MG TABLET NG SCH ×3 (01:29→17:52)
[2017-01-22 06:04] LABS: BASOPHILS % 0.6 % (0.0-2.0); EOSINOPHILS % 3.1 % (0.0-5.0); HEMOGLOBIN. 8.5 g/dL (14.0-18.0); LYMPHOCYTES % 31.4 % (20.0-50.0); MEAN CORPUSCULAR HEMOGLOBIN 30.2 pg (28.0-32.0); MEAN CORPUSCULAR VOLUME 88.8 fL (80.0-94.0); MEAN PLATELET VOLUME 8.7 fl (7.4-10.4); MONOCYTES % 13.4 % (2.0-8.0); NEUTROPHILS % 51.5 % (40.0-76.0); PLATELET 275 x1000/uL (130-400); RED BLOOD CELL COUNT 2.82 mill/uL (4.7-6.1); RED CELL DISTRIBUTION WIDTH 16.2 % (11.6-14.6)
[2017-01-22] MEDS: FERROUS SULFATE 325MG TABLET PO SCH ×2 (06:18→17:52)
[2017-01-22] MEDS: LANTHANUM CARBONATE 500MG CHEW TABLET PO SCH ×3 (06:18→17:52)
[2017-01-22 08:34] LABS: BG BASE EXCESS -1.5 mmol/L (-2.0-2.0); BG CARBOXYHEMOGLOBIN 0.3 % (0.5-1.5); BG FRACTION INSPIRED OXYGEN 40; BG HCO3 ACT 23.1 mmol/L (22.0-26.0); BG METHEMOGLOBIN 0.6 % (0.0-1.5); BG OXYHEMOGLOBIN 97.1 % (94.0-97.0); BG PCO2 38.4 mmHg (35.0-45.0); BG PH 7.398 (7.350-7.450); BG PO2 120.2 mmHg (75.0-100.0); BG SAMPLE SITE RIGHT RADIAL; BG TIDAL VOLUME(mL) 500 mL; BG TOTAL HEMOGLOBIN 8.7 g/dL (12.0-18.0); BG VENT MODE VENT - A/C; BG VENT RATE 14 set
[2017-01-22] MEDS: AMIODARONE HCL 200 MG TABLET NG SCH ×2 (09:00→17:52)
[2017-01-22] MEDS: FINASTERIDE 5MG TABLET PO SCH (09:00)
[2017-01-22] MEDS: ASPIRIN 81MG TABLET NG SCH (09:00)
[2017-01-22] MEDS: LEVETIRACETAM 500MG TABLET PO SCH ×2 (09:00→20:50)
[2017-01-22] MEDS ORDERED: POTASSIUM CHLORIDE INJ 40 MEQ in DEXT 5% WATER 250 ML IV SCH (09:00)
[2017-01-22] MEDS: FAMOTIDINE 20MG/2ML VIAL IV SCH (09:15)
[2017-01-22] MEDS ORDERED: FENTANYL CITRATE/PF 50MCG/ML 2ML VIAL ONE (15:31)
[2017-01-22] MEDS ORDERED: MIDAZOLAM HCL 2 MG/2 ML VIAL ONE (15:31)
[2017-01-22] MEDS: ENOXAPARIN 30MG/0.3ML SYR SUBCUT SCH (16:00)
[2017-01-22] MEDS: QUETIAPINE FUMARATE 50MG TABLET PO SCH (17:52)
[2017-01-22] MEDS: MIRTAZAPINE 15MG TABLET PO SCH (17:52)
[2017-01-23] VITALS (31 sets, daily range): BP systolic 105–158; BP diastolic 58–129
[2017-01-23] MEDS: IPRATROPIUM/ALBUTEROL 0.5-3(2.5)MG/3ML NEB HHN SCH ×6 (00:47→21:11)
[2017-01-23] MEDS: DILTIAZEM HCL 30MG TABLET NG SCH ×3 (01:21→18:15)
[2017-01-23] MEDS: LANTHANUM CARBONATE 500MG CHEW TABLET PO SCH ×3 (06:02→21:10)
[2017-01-23] MEDS: FERROUS SULFATE 325MG TABLET PO SCH ×2 (06:03→16:20)
[2017-01-23] MEDS: METOCLOPRAMIDE HCL 10MG/2ML VIAL IV SCH ×3 (06:04→18:15)
[2017-01-23 06:17] LABS: BASOPHILS % 0.2 % (0.0-2.0); HEMATOCRIT. 23.9 % (42.0-52.0); LYMPHOCYTES % 9.8 % (20.0-50.0); MEAN CORPUSCULAR HEMOGLOBIN 29.8 pg (28.0-32.0); MEAN CORPUSCULAR VOLUME 89.3 fL (80.0-94.0); MEAN PLATELET VOLUME 8.8 fl (7.4-10.4); MONOCYTES % 7.1 % (2.0-8.0); NEUTROPHILS % 82.9 % (40.0-76.0); PLATELET 274 x1000/uL (130-400); RED BLOOD CELL COUNT 2.68 mill/uL (4.7-6.1)
[2017-01-23] MEDS: ACETYLCYSTEINE 100MG/ML 10% VIAL 4ML INH SCH (08:12)
[2017-01-23] MEDS ORDERED: HEPARIN SODIUM 1,000 UNIT/1ML VIAL IV NR (09:30)
[2017-01-23] MEDS: LEVETIRACETAM 500MG TABLET PO SCH ×2 (09:32→21:09)
[2017-01-23] MEDS: FAMOTIDINE 20MG/2ML VIAL IV SCH (09:32)
[2017-01-23] MEDS: ASPIRIN 81MG TABLET NG SCH (09:33)
[2017-01-23] MEDS: FINASTERIDE 5MG TABLET PO SCH (11:05)
[2017-01-23] MEDS: AMIODARONE HCL 200 MG TABLET NG SCH ×2 (11:07→16:20)
[2017-01-23] MEDS: QUETIAPINE FUMARATE 50MG TABLET PO SCH (16:20)
[2017-01-23] MEDS: MIRTAZAPINE 15MG TABLET PO SCH (16:20)
[2017-01-23] MEDS: ENOXAPARIN 30MG/0.3ML SYR SUBCUT SCH (16:20)
[2017-01-23] MEDS: ACETAMINOPHEN 650MG/20.3ML UDC GT PRN (21:10)
[2017-01-24] VITALS (19 sets, daily range): BP systolic 103–161; BP diastolic 47–64
[2017-01-24] MEDS: IPRATROPIUM/ALBUTEROL 0.5-3(2.5)MG/3ML NEB HHN SCH ×6 (00:40→21:04)
[2017-01-24] MEDS: DILTIAZEM HCL 30MG TABLET NG SCH ×3 (02:20→18:04)
[2017-01-24] MEDS: METOCLOPRAMIDE HCL 10MG/2ML VIAL IV SCH ×4 (06:00→18:04)
[2017-01-24] MEDS: ASPIRIN 81MG TABLET NG SCH (09:36)
[2017-01-24] MEDS: FERROUS SULFATE 325MG TABLET PO SCH ×2 (09:36→18:03)
[2017-01-24] MEDS: AMIODARONE HCL 200 MG TABLET NG SCH ×2 (09:36→18:03)
[2017-01-24] MEDS: LEVETIRACETAM 500MG TABLET PO SCH ×2 (09:36→21:00)
[2017-01-24] MEDS: FINASTERIDE 5MG TABLET PO SCH (09:36)
[2017-01-24] MEDS: FAMOTIDINE 20MG/2ML VIAL IV SCH ×3 (09:37→13:19)
[2017-01-24] MEDS: LANTHANUM CARBONATE 500MG CHEW TABLET PO SCH ×3 (09:57→18:03)
[2017-01-24] MEDS: QUETIAPINE FUMARATE 50MG TABLET PO SCH (18:04)
[2017-01-24] MEDS: ENOXAPARIN 30MG/0.3ML SYR SUBCUT SCH (18:04)
[2017-01-24] MEDS: MIRTAZAPINE 15MG TABLET PO SCH (18:04)
[2017-01-25] VITALS (16 sets, daily range): BP systolic 108–153; BP diastolic 45–68
[2017-01-25] MEDS: IPRATROPIUM/ALBUTEROL 0.5-3(2.5)MG/3ML NEB HHN SCH ×6 (00:43→20:17)
[2017-01-25] MEDS: DILTIAZEM HCL 30MG TABLET NG SCH ×3 (02:00→18:33)
[2017-01-25] MEDS: METOCLOPRAMIDE HCL 10MG/2ML VIAL IV SCH ×4 (05:13→18:35)
[2017-01-25 06:40] LABS: HEMATOCRIT. 26.6 % (42.0-52.0); MEAN CORPUSCULAR HEMOGLOBIN 30.5 pg (28.0-32.0); MEAN CORPUSCULAR VOLUME 89.9 fL (80.0-94.0); PLATELET 253 x1000/uL (130-400); RED BLOOD CELL COUNT 2.96 mill/uL (4.7-6.1); RED CELL DISTRIBUTION WIDTH 15.9 % (11.6-14.6)
[2017-01-25] MEDS: LANTHANUM CARBONATE 500MG CHEW TABLET PO SCH ×3 (10:02→18:33)
[2017-01-25] MEDS: FERROUS SULFATE 325MG TABLET PO SCH ×2 (10:03→18:33)
[2017-01-25] MEDS: ASPIRIN 81MG TABLET NG SCH (10:03)
[2017-01-25] MEDS: FAMOTIDINE 20MG/2ML VIAL IV SCH (10:03)
[2017-01-25] MEDS: AMIODARONE HCL 200 MG TABLET NG SCH ×2 (10:04→18:32)
[2017-01-25] MEDS: LEVETIRACETAM 500MG TABLET PO SCH (10:04)
[2017-01-25] MEDS: FINASTERIDE 5MG TABLET PO SCH (10:04)
[2017-01-25 13:23] LABS: PLATELET ESTIMATE NORMAL
[2017-01-25] MEDS: ENOXAPARIN 30MG/0.3ML SYR SUBCUT SCH (18:31)
[2017-01-25] MEDS: QUETIAPINE FUMARATE 50MG TABLET PO SCH (18:32)
[2017-01-25] MEDS: MIRTAZAPINE 15MG TABLET PO SCH (18:32)
[2017-01-25] MEDS: LEVETIRACETAM 500MG/5ML CUP GT SCH (21:40)
[2017-01-25] MEDS: ACETAMINOPHEN 650MG/20.3ML UDC GT PRN (21:40)
[2017-01-26] VITALS (13 sets, daily range): BP systolic 101–156; BP diastolic 50–67
[2017-01-26] MEDS: METOCLOPRAMIDE HCL 10MG/2ML VIAL IV SCH ×2 (00:09→05:00)
[2017-01-26] MEDS: DIPHENHYDRAMINE 50MG/ML VIAL IV PRN (00:11)
[2017-01-26] MEDS: IPRATROPIUM/ALBUTEROL 0.5-3(2.5)MG/3ML NEB HHN SCH ×7 (00:20→23:27)
[2017-01-26] MEDS: DILTIAZEM HCL 30MG TABLET NG SCH ×3 (02:00→17:08)
[2017-01-26 07:04] LABS: HEMATOCRIT. 29.4 % (42.0-52.0); HEMOGLOBIN. 9.6 g/dL (14.0-18.0); MEAN CORPUSCULAR HEMOGLOBIN 29.8 pg (28.0-32.0); MEAN CORPUSCULAR VOLUME 91.4 fL (80.0-94.0); MEAN PLATELET VOLUME 9.1 fl (7.4-10.4); PLATELET 284 x1000/uL (130-400); RED BLOOD CELL COUNT 3.21 mill/uL (4.7-6.1); RED CELL DISTRIBUTION WIDTH 16.5 % (11.6-14.6)
[2017-01-26 08:48] LABS: BG BASE EXCESS -6.7 mmol/L (-2.0-2.0); BG CARBOXYHEMOGLOBIN 0.3 % (0.5-1.5); BG DEOXYHEMOGLOBIN 2.6 % (0.0-5.0); BG FRACTION INSPIRED OXYGEN 40; BG HCO3 ACT 17.4 mmol/L (22.0-26.0); BG METHEMOGLOBIN 0.3 % (0.0-1.5); BG OXYGEN SATURATION 97.4 % (92.0-98.5); BG OXYHEMOGLOBIN 96.8 % (94.0-97.0); BG PH 7.382 (7.350-7.450); BG PO2 105.9 mmHg (75.0-100.0); BG PRESSURE SUPPORT 18; BG SAMPLE SITE RIGHT BRACHIAL; BG TIDAL VOLUME(mL) 500 mL; BG TOTAL HEMOGLOBIN 10.1 g/dL (12.0-18.0); BG VENT MODE VENT - SIMV; BG VENT RATE 6 set
[2017-01-26] MEDS: FAMOTIDINE 20MG/2ML VIAL IV SCH (09:25)
[2017-01-26] MEDS: LEVETIRACETAM 500MG/5ML CUP GT SCH ×2 (09:25→21:46)
[2017-01-26] MEDS: FINASTERIDE 5MG TABLET PO SCH (09:26)
[2017-01-26] MEDS: FERROUS SULFATE 325MG TABLET PO SCH ×2 (09:26→17:10)
[2017-01-26] MEDS: AMIODARONE HCL 200 MG TABLET NG SCH ×2 (09:26→17:14)
[2017-01-26] MEDS: ASPIRIN 81MG TABLET NG SCH (09:27)
[2017-01-26] MEDS: LANTHANUM CARBONATE 500MG CHEW TABLET PO SCH ×3 (09:36→17:10)
[2017-01-26 11:40] LABS: PLATELET ESTIMATE NORMAL
[2017-01-26] MEDS: METOCLOPRAMIDE 10MG/10 ML UDC PO SCH ×3 (12:24→21:46)
[2017-01-26] MEDS: QUETIAPINE FUMARATE 50MG TABLET PO SCH (17:07)
[2017-01-26] MEDS: MIRTAZAPINE 15MG TABLET PO SCH (17:07)
[2017-01-26] MEDS: ENOXAPARIN 30MG/0.3ML SYR SUBCUT SCH (17:07)
[2017-01-26] MEDS: ACETAMINOPHEN 650MG/20.3ML UDC GT PRN (22:27)
[2017-01-27] VITALS (15 sets, daily range): BP systolic 110–148; BP diastolic 49–67
[2017-01-27] MEDS: DILTIAZEM HCL 30MG TABLET NG SCH ×3 (02:25→17:24)
[2017-01-27] MEDS: IPRATROPIUM/ALBUTEROL 0.5-3(2.5)MG/3ML NEB HHN SCH ×6 (03:40→23:37)
[2017-01-27] MEDS: METOCLOPRAMIDE 10MG/10 ML UDC PO SCH ×3 (05:51→17:24)
[2017-01-27 08:05] LABS: CLARITY URINE TURBID (CLEAR); COLOR URINE ORANGE (YELLOW); GLUCOSE URINE NEGATIVE (NEGATIVE); KETONES URINE NEGATIVE (NEGATIVE); LEUKOCYTE ESTERASE URINE 3+ (NEGATIVE); NITRITE URINE NEGATIVE (NEGATIVE); OCCULT BLOOD URINE 3+ (NEGATIVE); PROTEIN URINE 2+ (NEGATIVE); SPECIFIC GRAVITY URINE 1.025 (1.005-1.030); UROBILINOGEN URINE 0.2 E.U./dL (0.2-1.0)
[2017-01-27] MEDS: FINASTERIDE 5MG TABLET PO SCH (09:06)
[2017-01-27] MEDS: LANTHANUM CARBONATE 500MG CHEW TABLET PO SCH ×3 (09:06→17:24)
[2017-01-27] MEDS: AMIODARONE HCL 200 MG TABLET NG SCH ×2 (09:06→17:23)
[2017-01-27] MEDS: FAMOTIDINE 20MG/2ML VIAL IV SCH (09:06)
[2017-01-27] MEDS: FERROUS SULFATE 325MG TABLET PO SCH ×2 (09:06→17:24)
[2017-01-27] MEDS: ASPIRIN 81MG TABLET NG SCH (09:07)
[2017-01-27] MEDS: LEVETIRACETAM 500MG/5ML CUP GT SCH ×2 (09:17→20:49)
[2017-01-27] MEDS ORDERED: CEFEPIME 1,000 MG in DEXTROSE 5% WATER 50 ML IV SCH (14:00)
[2017-01-27] MEDS: ENOXAPARIN 30MG/0.3ML SYR SUBCUT SCH (16:10)
[2017-01-27] MEDS: QUETIAPINE FUMARATE 50MG TABLET PO SCH (17:23)
[2017-01-27] MEDS: MIRTAZAPINE 15MG TABLET PO SCH (17:23)
[2017-01-28] VITALS: BP 105/41
[2017-01-28] MEDS: DILTIAZEM HCL 30MG TABLET NG SCH (01:02)
[2017-01-28] MEDS: METOCLOPRAMIDE 10MG/10 ML UDC PO SCH ×2 (01:13→05:12)
[2017-01-28 02:00] VITALS: BP 115/42
[2017-01-28] MEDS: IPRATROPIUM/ALBUTEROL 0.5-3(2.5)MG/3ML NEB HHN SCH (03:18)
[2017-01-28 04:00] VITALS: BP 126/46
[2017-01-28 06:00] VITALS: BP 127/50
[2017-01-28 06:50] LABS: HEMOGLOBIN. 8.2 g/dL (14.0-18.0); MEAN CORPUSCULAR HEMOGLOBIN 29.6 pg (28.0-32.0); MEAN CORPUSCULAR VOLUME 90.5 fL (80.0-94.0); MEAN PLATELET VOLUME 9.3 fl (7.4-10.4); PLATELET 309 x1000/uL (130-400); RED BLOOD CELL COUNT 2.76 mill/uL (4.7-6.1); RED CELL DISTRIBUTION WIDTH 15.6 % (11.6-14.6)
[2017-01-28 08:00] VITALS: BP_SYST 102; BP_SYST 121; BP_DIAS 47; BP_DIAS 63
[2017-01-28] MEDS ORDERED: EPINEPHRINE 0.1MG/ML (1:10,000) 10ML SYR ONE (09:00)
[2017-01-28] MEDS ORDERED: SODIUM BICARBONATE 7.5% 0.9 MEQ/ML 50ML SYR IV ONE (09:00)
[2017-01-28] MEDS ORDERED: CALCIUM CHLORIDE 1GM/10ML SYR IV ONE (09:00)
[2017-01-28 16:29] LABS: PLATELET ESTIMATE NORMAL
== END 2017-01-28 12:30 | disposition expired | DRG 3 ==
LOC: ER 23:03 → 5EST 01-02 13:28 → ENRESERV 01-02 19:36 → MICUSO 01-04 23:47 → MICUNO 01-15 17:05 → 8WST 01-16 17:20 → MICUNO 01-20 07:04 → MICUSO 01-21 07:00 → 5EST 01-23 15:05
PROVIDERS: ADMIT Internal Medicine; ATTEND Internal Medicine
PROC: 5A1955Z Respiratory Ventilation, Greater than 96 Consecutive Hours (ICD-10-PCS; 2017-01-02)
PROC: 5A1D70Z Performance of Urinary Filtration, Intermittent, Less than 6 Hours Per Day (ICD-10-PCS; 2017-01-03)
PROC: 5A1D70Z Performance of Urinary Filtration, Intermittent, Less than 6 Hours Per Day (ICD-10-PCS; 2017-01-06)
PROC: 02HV33Z Insertion of Infusion Device into Superior Vena Cava, Percutaneous Approach (ICD-10-PCS; 2017-01-08)
PROC: B548ZZA Ultrasonography of Superior Vena Cava, Guidance (ICD-10-PCS; 2017-01-08)
PROC: 5A1D70Z Performance of Urinary Filtration, Intermittent, Less than 6 Hours Per Day (ICD-10-PCS; 2017-01-08)
PROC: 5A1D70Z Performance of Urinary Filtration, Intermittent, Less than 6 Hours Per Day (ICD-10-PCS; 2017-01-10)
PROC: 5A1D70Z Performance of Urinary Filtration, Intermittent, Less than 6 Hours Per Day (ICD-10-PCS; 2017-01-13)
PROC: 5A1D70Z Performance of Urinary Filtration, Intermittent, Less than 6 Hours Per Day (ICD-10-PCS; 2017-01-15)
PROC: 5A1D70Z Performance of Urinary Filtration, Intermittent, Less than 6 Hours Per Day (ICD-10-PCS; 2017-01-17)
PROC: 5A1D70Z Performance of Urinary Filtration, Intermittent, Less than 6 Hours Per Day (ICD-10-PCS; 2017-01-21)
PROC: 0GBJ0ZZ Excision of Thyroid Gland Isthmus, Open Approach (ICD-10-PCS; 2017-01-22)
PROC: 0B110F4 Bypass Trachea to Cutaneous with Tracheostomy Device, Open Approach (ICD-10-PCS; 2017-01-22)
PROC: 5A1D70Z Performance of Urinary Filtration, Intermittent, Less than 6 Hours Per Day (ICD-10-PCS; 2017-01-23)
PROC: 0DH63UZ Insertion of Feeding Device into Stomach, Percutaneous Approach (ICD-10-PCS; principal; 2017-01-25)
PROC: 5A1D70Z Performance of Urinary Filtration, Intermittent, Less than 6 Hours Per Day (ICD-10-PCS; 2017-01-28)
PROC: 5A12012 Performance of Cardiac Output, Single, Manual (ICD-10-PCS; 2017-01-28)
DX: A41.9 Sepsis, unspecified organism (principal); J69.0 Pneumonitis due to inhalation of food and vomit; R65.21 Severe sepsis with septic shock; E43 Unspecified severe protein-calorie malnutrition; G93.41 Metabolic encephalopathy; N17.9 Acute kidney failure, unspecified; J96.21 Acute and chronic respiratory failure with hypoxia; R13.10 Dysphagia, unspecified; J96.02 Acute respiratory failure with hypercapnia; J96.22 Acute and chronic respiratory failure with hypercapnia; N18.6 End stage renal disease; I12.0 Hypertensive chronic kidney disease with stage 5 chronic kidney disease or end stage renal disease; B37.49 Other urogenital candidiasis; I48.92 Unspecified atrial flutter; I46.9 Cardiac arrest, cause unspecified; D69.6 Thrombocytopenia, unspecified; D63.8 Anemia in other chronic diseases classified elsewhere; E87.6 Hypokalemia; F03.90 Unspecified dementia, unspecified severity, without behavioral disturbance, psychotic disturbance, mood disturbance, and anxiety; G40.909 Epilepsy, unspecified, not intractable, without status epilepticus; I25.2 Old myocardial infarction; I48.0 Paroxysmal atrial fibrillation; I73.9 Peripheral vascular disease, unspecified; N40.0 Benign prostatic hyperplasia without lower urinary tract symptoms; R47.02 Dysphasia; Z89.511 Acquired absence of right leg below knee; R62.7 Adult failure to thrive; Z99.2 Dependence on renal dialysis; Z79.82 Long term (current) use of aspirin; Z79.899 Other long term (current) drug therapy; Z22.322 Carrier or suspected carrier of Methicillin resistant Staphylococcus aureus; K74.60 Unspecified cirrhosis of liver; N13.9 Obstructive and reflux uropathy, unspecified; J40 Bronchitis, not specified as acute or chronic; Z68.24 Body mass index [BMI] 24.0-24.9, adult
CPT/HCPCS: 31500; 36415; 36569; 36600; 70450; 70551; 71010; 74000; 76937; 80048; 80053; 80061; 80202; 81001; 82140; 82375; 82728; 82805; 82962; 83735; 84100; 84134; 84145; 84443; 84484; 85025; 85610; 85730; 86706; 86803; 87040; 87070; 87077; 87086; 87186; 87340; 87493; 92610; 92950; 93005; 94002; 94003; 94640; 94660; 94667; 96365; 96366; 96375; 97163; 97164; 97167; 97168; 99285; A4216; A6261; C1725; C9113; J0171; J0461; J0692; J0885; J1160; J1200; J1364; J1644; J1650; J2248; J2250; J2405; J2543; J2765; J3010; J3370; J3480; J3490; J7030; J7040; J7050; J7060; J7608; J7620; J8597